=== PATIENT | female | born 1945 | race Caucasian/White ===

== ENCOUNTER → 2017-07-29 | Outpatient (CLI) | payer OTHER | LOC: BHFA 09:30 | PROVIDERS: ATTEND Internal Medicine Cardiovascular Disease | DX: R09.02 Hypoxemia (principal); Z01.810 Encounter for preprocedural cardiovascular examination; R06.02 Shortness of breath ==

== ENCOUNTER → 2017-07-30 | Outpatient (CLI) | payer OTHER | LOC: BHLMT 13:15 | PROVIDERS: ATTEND Internal Medicine Interventional Cardiology | DX: R06.02 Shortness of breath (principal); R01.1 Cardiac murmur, unspecified | CPT/HCPCS: 93306-PO ==

== ENCOUNTER → 2017-08-07 | Outpatient (CLI) | payer OTHER | LOC: BHFA 14:00 | PROVIDERS: ATTEND Internal Medicine Cardiovascular Disease | DX: R06.02 Shortness of breath (principal) | CPT/HCPCS: 78452; 93017; A9500; J2785 ==

== ENCOUNTER 2017-08-13 07:44 | Inpatient (IN) | payer OTHER ==
--- NOTE | 2017-08-13 06:42 | PDHPUP ---
History & Physical Update H&P update statement: This history and physical update is based on an assessment of the patient which was completed after admission or registration (within 24 hours), but prior to the surgery/procedure. H&P update: H&P reviewed & patient examined, no change in patient's condition since H&P completed
[2017-08-13] MEDS ORDERED: ceFAZolin 2 GM/SWFI 2 GM/20 ML SYR IVP ONE (07:57)
[2017-08-13] MEDS ORDERED: GABAPENTIN 300 MG CAP PO ONE (07:57)
[2017-08-13] MEDS ORDERED: ACETAMINOPHEN 500 MG TAB PO ONE (07:57)
[2017-08-13] MEDS ORDERED: LR 1,000 ML IV ONE (07:59)
[2017-08-13] MEDS ORDERED: LIDOCAINE 1% 2 ML INJ ID PRN (07:59)
--- NOTE | 2017-08-13 08:52 | PDANEPAE ---
ANE History of Present Illness 71 year old female w/ polio (as child), home O2 (at night and at altitude only = 2L/min), GERD, OA, vertigo and chronic low back pain presents for L3-L5 TLIF. ANE Past Medical History - Cardiovascular History Hx Hypertension: No Hx Arrhythmias: No Hx Chest Pain: No Hx Coronary Artery / Peripheral Vascular Disease: No Hx CHF / Valvular Disease: No Hx Palpitations: No Cardiovascular History Comment: on CHol Rx "BP can be borderline-now w/my age" - Pulmonary History Hx COPD: No Hx Asthma/Reactive Airway Disease: No Hx Recent Upper Respiratory Infection: No Hx Oxygen in Use at Home: No O2 in Use at Home (L/minute): 2L NC at night Hx Sleep Apnea: No Sleep Apnea Screening Result - Last Documented: Negative Pulmonary History Comment: chronic O2-uses night time O2 while at elevation- not sea level - Neurologic History Hx Cerebrovascular Accident: No Hx Seizures: No Hx Dementia: No - Endocrine History Hx Diabetes: No Hypothyroid: No Hyperthyroid: No Obesity: mild - Renal History Hx Renal Disorders: No Renal History Comment: UTI -late - Liver History Hx Hepatic Disorders: No - Neurological & Psychiatric Hx Hx Neurological and Psychiatric Disorders: Yes Neurological / Psychiatric History Comment: Polio as a child. Low back pain radiates to front groin/thigh-w/standing too long. - Cancer History Hx Cancer: No - Congenital Disorder History Hx Congenital Disorders: No - GI History Hx Gastrointestinal Disorders: Yes Gastrointestinal History Comment: GERD - Other Health History Other Health History: OA- knees. Hx of positional vertigo - Chronic Pain History Chronic Pain: Yes (back/R leg) - Surgical History Prior Surgeries: T and A child. T.L. R breast lumpectomy-benign. broken R toe -repaired ANE Review of Systems Review of Systems: - Exercise capacity Exercise capacity: <4 METS METS (RN): 3 METS ANE Patient History - Allergies Allergies/Adverse Reactions: Penicillins Allergy (Verified 08/13/17 08:22) Unknown - Home Medications Home medications: home medication list seen and reviewed Home Medications: Ascorbic Acid [Vitamin C 500 mg (*)] 500 mg PO DAILY 07/30/17 [Last Taken ] Aspirin [Aspirin 81mg (*)] 81 mg PO HS 07/30/17 [Last Taken 08/04/17] Atorvastatin Calcium [Lipitor 40 mg (*)] 40 mg PO HS 07/30/17 [Last Taken 21:00] Calcium Carbonate [Oyster Shell Calcium 500 mg (*)] 500 mg PO TID 07/30/17 [ Last Taken 08/04/17] Cholecalciferol Vit D3 [Vitamin D3 2000 units tab (OTC)] 2,000 units PO DAILY [Last Taken 08/04/17] Diazepam [Valium 10 MG (*)] 10 mg PO DAILY PRN 07/30/17 [Last Taken Unknown] Dimenhydrinate [Dramamine] 25 mg PO DAILY PRN 07/30/17 [Last Taken Unknown] Gabapentin [Neurontin 300 MG (*)] 300 mg PO TID 07/30/17 [Last Taken 08/13/17 05 :30] Glucosamine/Chondroitin [Glucosamine/Chondroitin (*)] 1 each PO BID 07/30/17 [ Last Taken 08/04/17] Herbals/Supplements -Info Only 1 ea PO DAILY 07/30/17 [Last Taken 08/04/17] Hydrocodone/Acetaminophen [[place] 5/325 (*)] 1 tab PO TID PRN 07/30/17 [Last Taken 08/13/17 05:30] Propranolol HCl [Innopran Xl] 80 mg PO DAILY PRN 07/30/17 [Last Taken Unknown] Ranitidine HCl [Zantac] 150 mg PO DAILY 07/30/17 [Last Taken 08/08/17] Ranitidine HCl [Zantac] 150 mg PO DAILY18 PRN 07/30/17 [Last Taken 08/08/17] - NPO status NPO Status: no food or drink >8 hours - Anes Hx Anes Hx: no prior problems - Smoking Hx Smoking Status: Never smoked Marijuana use: No - Alcohol Use Alcohol Use: Rarely - Family Anes Hx Family Anes Hx: neg - N/A ANE Labs/Vital Signs - Vital Signs Vital Signs: reviewed preoperatively; see RN documention for details Height: 160.02 cm Weight: 88.451 kg ANE Physical Exam - Airway Neck exam: FROM Mallampati Score: Class 2 Mouth exam: normal dental/mouth exam - Pulmonary Pulmonary: no respiratory distress - Cardiovascular Cardiovascular: regular rate and rhythym - ASA Status ASA Status: II ANE Anesthesia Plan Anesthesia Plan: general endotracheal anesthesia Total IV Anesthesia: No
[2017-08-13] MEDS ORDERED: MIDAZOLAM 2 MG/2 ML VIAL IVP ONE (10:05)
[2017-08-13] MEDS ORDERED: NON-FORMULARY NEW DRUG (Ranitidine Hcl [Zantac] 150 MG) PO PRN (10:08)
[2017-08-13] MEDS ORDERED: PROPRANOLOL HCL 80 MG PO PRN (10:08)
[2017-08-13] MEDS ORDERED: DIMENHYDRINATE 25 MG PO PRN (10:08)
[2017-08-13] MEDS ORDERED: HYDROCODONE/APAP 5/325 TAB PO PRN (10:08)
[2017-08-13] MEDS ORDERED: DIAZEPAM 10 MG TAB PO PRN (10:08)
[2017-08-13] MEDS ORDERED: LACTULOSE 20 GM/30 ML UDCUP PO PRN (10:09)
[2017-08-13] MEDS ORDERED: diphenhydrAMINE 25 MG CAP PO PRN (10:09)
[2017-08-13] MEDS ORDERED: NALOXONE HCL 0.4 MG/ML INJ IVP PRN ×2 (10:09→14:55)
[2017-08-13] MEDS ORDERED: MAGNESIUM HYDROXIDE 30 ML UDCUP PO PRN (10:09)
[2017-08-13] MEDS ORDERED: HYDROmorphONE/DILAUDID 6 MG/30 ML PCA IV PRN (10:09)
[2017-08-13] MEDS ORDERED: CHLORHEXIDINE GLUC HIBICLENS 118 ML BTL TP ONE (10:10)
[2017-08-13] MEDS ORDERED: BACITRACIN 50,000 UNITS/10 ML SYR IRR ONE ×2 (10:11→12:20)
[2017-08-13] MEDS ORDERED: THROMBIN (BOVINE) 5,000 UNIT VIAL TP ONE (10:11)
[2017-08-13] MEDS ORDERED: BUPIVACAINE 0.25% 30 ML SDV ONE (10:11)
[2017-08-13] MEDS ORDERED: PROPOFOL 200 MG/20 ML VIAL ONE (10:15)
[2017-08-13] MEDS ORDERED: fentaNYL 100 MCG/2 ML INJ ONE ×3 (10:15→16:53)
[2017-08-13] MEDS ORDERED: REMIFENTANIL HCL 1 MG VIAL ONE ×2 (10:15→12:33)
[2017-08-13] MEDS ORDERED: NS W/ 20 KCl/L 1,000 ML IV SCH (10:15)
[2017-08-13] MEDS ORDERED: PROPOFOL/EMULSION 500 MG/50 ML BOTTLE IV ONE ×2 (10:15→12:33)
[2017-08-13] MEDS: SCOPOLAMINE HYDROBROMIDE 1 MG/3 DAYS PATCH TD SCH (10:19)
[2017-08-13] MEDS ORDERED: PROPRANOLOL SR 80 MG CAP PO PRN (10:22)
[2017-08-13] MEDS ORDERED: FAMOTIDINE 20 MG TAB PO PRN (10:23)
[2017-08-13] MEDS ORDERED: PHENYLEPHRINE 10 MG/ML SDV ONE (10:25)
[2017-08-13] MEDS ORDERED: DEXAMETHASONE 4 MG/ML VIAL ONE (11:39)
[2017-08-13] MEDS ORDERED: ONDANSETRON 4 MG/2 ML VIAL ONE ×2 (11:39→16:41)
[2017-08-13] MEDS ORDERED: SUGAMMADEX SODIUM 200 MG/2 ML VIAL IVP ONE (11:39)
[2017-08-13] MEDS ORDERED: ALBUMIN 5% 250 ML BOTTLE IV ONE (14:06)
[2017-08-13] MEDS ORDERED: epHEDrine SULFATE 10 MG/ML SYR IVP PRN (14:55)
[2017-08-13] MEDS ORDERED: PHENYLEPHRINE HCL 100 MCG/ML SYR IVP PRN (14:55)
[2017-08-13] MEDS ORDERED: ONDANSETRON 4 MG/2 ML VIAL IVP PRN (14:55)
[2017-08-13] MEDS ORDERED: LR 500 ML IV PRN (14:55)
[2017-08-13] MEDS ORDERED: HYDROmorphONE/DILAUDID 1 MG/ML INJ ONE ×3 (15:39→16:59)
[2017-08-13] MEDS: fentaNYL 100 MCG/2 ML INJ IVP PRN ×4 (15:45→17:38)
--- NOTE | 2017-08-13 15:51 | SOAPPROG ---
SOAP Progress Note Assessment/Plan: Post Op Visit: S: Awake and alert. NAD. 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 -post op xrays in am -pt seen by Dr Newman as well 08/13/17 15:32 Objective: Vital Signs Temp Pulse Resp BP Pulse Ox 36.7 C 108 H 16 133/84 H 92 08/13/17 08:56 08/13/17 08:56 08/13/17 08:56 08/13/17 08:56 08/13/17 08:56 ICD10 Worksheet Patient Problems: Problems Problem Status Onset Arthrodesis status Acute Lumbago Acute Lumbar radicular pain Acute Lumbar stenosis Acute - ICD10 Problem Qualifiers (1) Lumbar stenosis Qualifiers: Neurogenic claudication status: with neurogenic claudication Qualified Code (s): M48.062 - Spinal stenosis, lumbar region with neurogenic claudication (2) Lumbar radicular pain (3) Lumbago Qualifiers: Chronicity: unspecified (4) Arthrodesis status
[2017-08-13] MEDS: HYDROmorphONE/DILAUDID 1 MG/ML INJ IVP PRN ×7 (15:52→20:27)
[2017-08-13] MEDS ORDERED: DIAZEPAM 10 MG/2 ML SYR IVP ONE (16:06)
[2017-08-13] MEDS ORDERED: DIAZEPAM 10 MG/2 ML SYR ONE (16:07)
[2017-08-13] MEDS ORDERED: HYDROCODONE/APAP 5/325 TAB ONE (16:53)
[2017-08-13] MEDS ORDERED: HYDROmorphONE/DILAUDID 1 MG/ML INJ IVP ONE (16:59)
[2017-08-13] MEDS: ONDANSETRON 4 MG/2 ML VIAL IVP PRN (18:10)
[2017-08-13] MEDS: oxyCODONE IR 5 MG TAB PO PRN ×2 (18:17→22:40)
[2017-08-13] MEDS: METHOCARBAMOL 750 MG TAB PO PRN (18:17)
[2017-08-13] MEDS: GABAPENTIN 300 MG CAP PO SCH ×2 (18:17→22:29)
[2017-08-13] MEDS: ACETAMINOPHEN 325 MG TAB PO PRN (18:18)
[2017-08-13] MEDS: ceFAZolin 2 GM/DEXTROSE 100 ML IV SCH (18:20)
[2017-08-13] MEDS: POLYETHYLENE GLYCOL 3350 17 GM PKT PO PRN (18:27)
[2017-08-13] MEDS: SENNOSIDES/DOCUSATE SODIUM TAB PO SCH (20:30)
[2017-08-13] MEDS: FAMOTIDINE 20 MG TAB PO SCH (20:30)
[2017-08-13] MEDS: ATORVASTATIN CALCIUM 40 MG TAB PO SCH (20:30)
--- NOTE | 2017-08-13 20:33 | GOP ---
[f rep st] OPERATIVE REPORT DATE OF OPERATION: 08/13/2017 SURGEON: Drew Newman MD NEUROSURGEON: Manuel Newman MD. CLIENT SUPPORT ASSOCIATE: JAGDEEP Roth. PREOPERATIVE DIAGNOSIS: Lumbar degenerative scoliosis, severe; right lumbosacral radiculopathy, righ t foraminal and lateral recess stenosis L3-4, L4-5. POSTOPERATIVE DIAGNOSIS: Lumbar degenerative scoliosis, severe; right lumbosacral radiculopathy, rig ht foraminal and lateral recess stenosis L3-4, L4-5. PROCEDURE PERFORMED: Posterior lateral and intervertebral arthrodesis L3-4, L4-5 (43553 and [id number]), placement of biomechanical intervertebral device L3-4, L4-5 (75247 x2), posterior segmental instrumen tation L3, L4, L5, microscope, spinal stereotaxis for placement of pedicle screws bilaterally at L3, L4, L5, same incision bone graft harvest. FINDINGS: ESTIMATED BLOOD LOSS: 350 cc. INDICATIONS: The patient is an older woman who has severe right lumbosacral radiculopathy unresponsi ve to conservative measures, and she had a degenerative scoliotic curve at L3-4, L4-5. She had sever e foraminal lateral recess stenosis at those levels and I suggested a 2 level fusion. She also had s ome left lateral recess stenosis at L5-S1 and a spondylolisthesis at L5-S1, but no evidence of right- sided compression at that level and therefore I excluded this from my surgical plan. There was some evidence of a degenerative scoliosis at L2-3 but no compressive lesion there. The risk of pseudoarth rosis, adjacent segment disease, continued symptoms, nerve injury, spinal fluid leak, screw and hardw are malposition and failure as well as the possibility that surgery would not give her any relief was discussed. She knew these risks and she did want to proceed. DESCRIPTION OF PROCEDURE: The patient was taken to the operating room, placed in the supine position . General anesthesia was begun. She was flipped prone onto the Blaze table. Care was taken to pa d all points of contact. We had some difficulty positioning her and she developed a small superficia l rub burn over the left anterior superior iliac spine, but this was done in positioning. We eventua lly were able to get her positioned nicely. An arterial line was started by the anesthesiologist. S he was sterilely prepped and draped in usual fashion. We made a midline incision above the L3-4, L4- 5 interspace. The subcutaneous tissue was dissected using Bovie cautery down through the fascia and a subperiosteal dissection was made down the L3-4, L4-5 lamina. The hypertrophic facets bilaterally were denuded and we shot a localizing x-ray. We attached the [employer] reference frame, placed pedicle screws bilaterally at L3, L4, and L5. They were in excellent position. We were guided by [place]. I was somewhat unhappy with the right L3 screw and an O-arm spin was made and that screw was just la teral to the pedicle. It was removed and a new screw placed down the barrel of the pedicle and an O- arm spin was made and this screw was in perfect position. All of the screws stimulated at [facility]. We were happy with the electrodiagnostics. We took 70 mm rods, cut them down to about 65 mm and placed them down between the screws, distracted on the right more so than the left and reduced th e degenerative kink on the right-hand side. They were final tightened according to company specifica tion. We harvested the complete L4 spinous process. The inferior L3 spinous process was harvested f or autologous grafting purposes. We removed all the soft tissue, the bone at L3-4, L4-5. We then dr illed bilateral laminas at L3-4, L4-5, but most of the left side was actually preserved, but we did h arvest much of the bone. Under the operating microscope, we performed right tani-laminectomies at L3 -4, L4-5 to decompress the right lateral recess, and there was some adherence of the facet joint caps ule and ligamentum flavum in the lateral recess at both levels. There was an hourglass kink in the t hecal sac on the right-hand side at L3-4 and we were able to completely decompress this area. We the n swept the L4 nerve root medially and at the L3-4 level we incised the disk, removed the disk and th e cartilaginous endplates. We roughened the subchondral bone to create arthrodesis at that level. W e went to the L4-5 level where we swept the L5 nerve root medially and removed the disk and the carti laginous endplates at L4-5 and roughened the subchondral bone to create arthrodesis. We then sized t he space and chose 7 x 28 mm devices for each space. We placed bone morphogenic protein and autograf t into the disk spaces at each level and under fluoroscopic guidance, placed expandable cages in the L3-4, L4-5 space. They were expanded under fluoroscopic guidance and we were happy with positioning of the devices. An x-ray was taken. We then carefully prepared the bone posterolaterally bilaterall y to conclude our arthrodesis and place bony autograft and BMP posterolaterally bilaterally. There w as no evidence of nerve irritation or injury during the case, all of our screws stimulated acceptable levels. They were all torqued to company specification. A subfascial drain was placed. The incisi on was closed in multiple layers using Vicryl sutures. The patient was reversed from anesthesia, ext ubated, and transferred to recovery room in stable condition. There were no complications. COMPLICATIONS: None. INSTRUMENTATION USED: 7 Cups of Tea 5.5 mm titanium Solara system with a 7 x 28 mm Elevate cage at each intervertebral device, and we used 4.0 mg of bone morphogenic protein for the surgery, 2 mg in the in terspaces and 2 mg posterolaterally. /[id number]/MODL
[2017-08-14] MEDS: ceFAZolin 2 GM/DEXTROSE 100 ML IV SCH (02:24)
[2017-08-14] MEDS: METHOCARBAMOL 750 MG TAB PO PRN ×2 (05:16→21:14)
[2017-08-14] MEDS: oxyCODONE IR 5 MG TAB PO PRN ×4 (05:16→21:14)
[2017-08-14] MEDS: HYDROmorphONE/DILAUDID 1 MG/ML INJ IVP PRN ×4 (05:17→19:09)
[2017-08-14 06:03] LABS: PLATELET COUNT 208 10^3/uL (150-400)
--- NOTE | 2017-08-14 08:32 | NEUSURGPN ---
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 NAD. Eating/drinking and voiding. No f/c/n/v/d. Pt with expected lower back pain. Objective: AFVSS/PERRLA/EOMI no droop CN 2-12 grossly intact +lt touch 5/5 BUE/BLE = CDI MANNY in place Neuro Check Frequency: per routine Urinary Catheter in Place: No Catheter Insertion Date: 08/13/17 - Physician Discussed Patient with : Trent Patient Seen by : Trent Neurosurgery Physical Exam - Vitals, I&O, Labs I and O 08/13/17 08/14/17 08/15/17 05:59 05:59 05:59 Intake Total 4047 Output Total 1935 Balance 2112 Weight 90.718 kg Intake: Oral (ml) 100 IV Intake (ml) 3947 Output: Urine (ml) 1575 Catheter 1575 Estimated Blood Loss (ml) 100 MANNY Drain Output (ml) 260 #1 Right Back Blaze 260 Romeo Vital Signs Temp Pulse Resp BP Pulse Ox 37.4 C 86 16 104/57 L 94 08/14/17 08:00 08/14/17 08:00 08/14/17 08:00 08/14/17 08:00 08/14/17 08:00 Laboratory Results 08/14/17 04:45 08/14/17 04:45 ICD10 Worksheet Patient Problems: Problems Problem Status Onset Arthrodesis status Acute Lumbago Acute Lumbar radicular pain Acute Lumbar stenosis Acute - ICD10 Problem Qualifiers (1) Lumbar stenosis Qualifiers: Neurogenic claudication status: with neurogenic claudication Qualified Code (s): M48.062 - Spinal stenosis, lumbar region with neurogenic claudication (2) Lumbar radicular pain (3) Lumbago Qualifiers: Chronicity: unspecified (4) Arthrodesis status
[2017-08-14] MEDS ORDERED: NON-FORMULARY NEW DRUG (Ranitidine Hcl [Zantac] 150 MG) PO SCH (09:00)
[2017-08-14] MEDS: SENNOSIDES/DOCUSATE SODIUM TAB PO SCH ×2 (09:28→21:13)
[2017-08-14] MEDS: GABAPENTIN 300 MG CAP PO SCH ×3 (09:28→21:13)
[2017-08-14] MEDS: FAMOTIDINE 20 MG TAB PO SCH ×2 (09:29→09:46)
[2017-08-14] MEDS: ACETAMINOPHEN 325 MG TAB PO PRN ×2 (11:36→19:10)
--- NOTE | 2017-08-14 12:28 | ASMTCMCOM ---
CM Note CM Note Notes: Chart reviewed. Met with patient and her to review dc plan of care. They live in [place] and she is s/p back surgery. She needs a brace while oob. She expresses concern over her ability to manage things like getting in and out of bed. Would benefit from [facility] services including PT and OT. Referrals placed. CM to follow. Date Signed: 08/14/2017 12:28 PM Electronically Signed By:Jaimie Willis RN
[2017-08-14] MEDS: ONDANSETRON DISINTEGRATING 4 MG TAB PO PRN (13:45)
[2017-08-14] MEDS: ATORVASTATIN CALCIUM 40 MG TAB PO SCH (21:14)
[2017-08-14] MEDS: POLYETHYLENE GLYCOL 3350 17 GM PKT PO PRN (22:35)
[2017-08-15] MEDS: oxyCODONE IR 5 MG TAB PO PRN ×4 (04:07→21:52)
[2017-08-15] MEDS: METHOCARBAMOL 750 MG TAB PO PRN ×2 (04:07→13:43)
--- NOTE | 2017-08-15 08:42 | NEUSURGPN ---
Assessment/Plan: Assessment: 71 yo female that is s/p TLIF L3/4 and L4/5 POD #2 Plan: -PT/OT in am -brace when out of bed -IV->PO meds -post op xrays demonstrate intact hardware -d/c MANNY this morning -call with any questions or concerns -Discussed with Dr. Newman -Dispo planning for later today tomorrow depending on progress with PO meds Subjective: low back pain, medication are helping some what. Denies any new leg pain, numbness, tingling or weakness. Objective: NAD A&Ox3 MAEx4 5/5 and equal in BUE and BLE. Dressing c/d/i Catheter Insertion Date: 08/13/17 - Physician Discussed Patient with : Trent Neurosurgery Physical Exam - Vitals, I&O, Labs I and O 08/14/17 08/15/17 08/16/17 05:59 05:59 05:59 Intake Total 4047 1500 350 Output Total 1935 1135 Balance 2112 365 350 Weight 90.718 kg Intake: Oral (ml) 100 1500 350 IV Intake (ml) 3947 Output: Urine (ml) 1575 1000 Catheter 1575 Toilet 1000 Estimated Blood Loss (ml) 100 MANNY Drain Output (ml) 260 135 #1 Right Back Blaze 260 135 Romeo Other: Intake Quantity Yes Yes Sufficient Number of Voids Toilet 1 Number of Emesis 1 Occurrences Vital Signs Temp Pulse Resp BP Pulse Ox 37.3 C 100 16 114/70 95 08/15/17 08:00 08/15/17 08:00 08/15/17 08:00 08/15/17 08:00 08/15/17 08:00 Laboratory Results 08/14/17 04:45 08/14/17 04:45 ICD10 Worksheet Patient Problems: Problems Problem Status Onset Arthrodesis status Acute Lumbago Acute Lumbar radicular pain Acute Lumbar stenosis Acute
[2017-08-15] MEDS: FAMOTIDINE 20 MG TAB PO SCH (08:44)
[2017-08-15] MEDS: GABAPENTIN 300 MG CAP PO SCH ×3 (08:44→21:52)
[2017-08-15] MEDS: SENNOSIDES/DOCUSATE SODIUM TAB PO SCH ×2 (08:44→21:52)
--- NOTE | 2017-08-15 11:37 | ASMTCMCOM ---
CM Note CM Note Notes: Discussed case w/PT, Elen who did not feel pt needed HHC but will reassess today. Met w/pt to discuss dc poc and she is ok with whatever is recommended. She said that her will be able to help out quite a bit. Current dc plan: home w/ unless it is felt she needs HHC for PT/OT in which case [facility] has accepted. Date Signed: 08/15/2017 11:36 AM Electronically Signed By:Layla Amos RN
[2017-08-15] MEDS: ONDANSETRON DISINTEGRATING 4 MG TAB PO PRN (14:37)
[2017-08-15] MEDS: ONDANSETRON 4 MG/2 ML VIAL IVP PRN ×2 (14:53→19:46)
[2017-08-15] MEDS: PROMETHAZINE HCL 25 MG/ML INJ IVP PRN (21:51)
[2017-08-15] MEDS: ATORVASTATIN CALCIUM 40 MG TAB PO SCH (21:53)
[2017-08-16 00:13] VITALS: PULSE 117
[2017-08-16] MEDS: oxyCODONE IR 5 MG TAB PO PRN ×2 (06:17→11:06)
[2017-08-16] MEDS: PROMETHAZINE HCL 25 MG/ML INJ IVP PRN (06:20)
[2017-08-16 07:28] VITALS: BP 117/82; RESP 16; TEMP 98.8; O2SAT 93
[2017-08-16] MEDS: SENNOSIDES/DOCUSATE SODIUM TAB PO SCH (08:46)
[2017-08-16] MEDS: BISACODYL 10 MG SUPP PR PRN ×2 (08:46→11:18)
[2017-08-16] MEDS: FAMOTIDINE 20 MG TAB PO SCH (08:47)
[2017-08-16] MEDS: GABAPENTIN 300 MG CAP PO SCH (08:47)
[2017-08-16] MEDS: SCOPOLAMINE HYDROBROMIDE 1 MG/3 DAYS PATCH TD SCH (08:48)
[2017-08-16] MEDS ORDERED: ENOXAPARIN 40 MG/0.4 ML SYR SC SCH (09:00)
[2017-08-16] MEDS ORDERED: PATCH REMOVAL 1 EA PATCH TD SCH (10:05)
[2017-08-16] MEDS ORDERED: MAGNESIUM CITRATE 300 ML BOTTLE PO ONE (10:57)
[2017-08-16] MEDS: METHOCARBAMOL 750 MG TAB PO PRN (11:06)
--- NOTE | 2017-08-16 13:25 | NEUSURGPN ---
Assessment/Plan: Assessment/Plan: Assessment: 71 yo female that is s/p TLIF L3/4 and L4/5 POD #3 Plan: -PT/OT -brace when out of bed -PO pain meds tolerating well -post op xrays demonstrate intact hardware -Some nausea but most likley from no BM- passing plenty of gas and no distention in abdomen. Hopeful for BM today -Can DC home later today if has BM, tolerating full diet, no vomiting -Scripts in chart -call with any questions or concerns -Discussed with Dr. Newman Subjective: Improved nausea this morning but still has some. No BM yet but passing gas. Has mild headache. No pain, weakness, in legs Objective: NAD A&Ox3 MAEx4 5/5 and equal in BUE and BLE. Dressing c/d/i Catheter Insertion Date: 08/13/17 - Physician Discussed Patient with : Trent Neurosurgery Physical Exam - Vitals, I&O, Labs I and O 08/15/17 08/16/17 08/17/17 05:59 05:59 05:59 Intake Total 1500 1130 Output Total 1135 650 Balance 365 480 Intake: Oral (ml) 1500 1130 Output: Urine (ml) 1000 500 Toilet 1000 500 Emesis (ml) 150 MANNY Drain Output (ml) 135 #1 Right Back Blaze 135 Romeo Other: Intake Quantity Yes Yes Sufficient Number of Voids Toilet 1 1 Number of Emesis 1 Occurrences Vital Signs Temp Pulse Resp BP Pulse Ox 37.1 C 117 H 16 117/82 H 93 08/16/17 07:27 08/16/17 07:27 08/16/17 07:27 08/16/17 07:27 08/16/17 07:27 Laboratory Results 08/14/17 04:45 08/14/17 04:45 ICD10 Worksheet Patient Problems: Problems Problem Status Onset Arthrodesis status Acute Lumbago Acute Lumbar radicular pain Acute Lumbar stenosis Acute
--- NOTE | 2017-08-16 17:41 | ASDISCHSUM ---
Discharge Information Plan Status:Home with No Needs Medically Cleared to Leave:08/15/2017 Discharge Date:08/16/2017 02:50 PM CM D/C Disposition:Home, Routine, Self-Care ADT D/C Disposition:Home, Routine, Self-Care Projected Discharge Date:08/15/2017 11:00 AM Transportation at D/C:Family Discharge Delay Reason: Follow-Up Date:08/15/2017 11:00 AM Discharge Slot:2 - 12:01 pm - 18:00 pm Final Diagnosis:s/p TLIF L3/4 and L 4/5 Placement Information Referral Type:*Home Health Care Services Referral ID:[id number] Provider Name: Address 1: Phone Number: Address 2: Fax Number: City: Selection Factors:Patient/Family Choice State: Patient Contact Information Contact Name:JEREMIAS Relationship: Address:[address] City:[facility] Phone: State/Zip Code:[place] [address] Email: Financial Information Financial Class: Primary Plan Desc:MEDICARE INPATIENT Primary Plan Number:[id number] Secondary Plan Desc:[facility] Secondary Plan Number:[id number] Assessment Information [facility] CM Progress Note CM Note CM Note Notes: Chart reviewed. Met with patient and her to review dc plan of care. They live in [place] and she is s/p back surgery. She needs a brace while oob. She expresses concern over her ability to manage things like getting in and out of bed. Would benefit from [facility] services including PT and OT. Referrals placed. CM to follow. Date Signed: 08/14/2017 12:28 PM Electronically Signed By:Jaimie Willis RN [facility] CM Progress Note CM Note CM Note Notes: Discussed case w/PT, Elen who did not feel pt needed HHC but will reassess today. Met w/pt to discuss dc poc and she is ok with whatever is recommended. She said that her will be able to help out quite a bit. Current dc plan: home w/ unless it is felt she needs HHC for PT/OT in which case [facility] has accepted. Date Signed: 08/15/2017 11:36 AM Electronically Signed By:Layla Amos RN Case Management Discharge Plan Note Case Management Discharge Discharge Order Complete? Answers: Yes Patient to Obtain Answers: via Family Medications Transportation Arranged Answers: Family/Friends EMTALA Complete Answers: No Notes: N/A Case Management Transport Answers: No Notes: N/A Form Complete Faxed Final Orders Answers: No Notes: N/A Agency/Facility Transfer Answers: No Notes: N/A Report Printed & Faxed to Receiving Agency Family Notified Answers: No Notes: Pt to notify Discharge Comments Notes: Reviewed chart, spoke w/ TINA Borrego regarding discharge plan, pt's progress. Per Sailma, pt declining home care despite PT/OT recommendations. Pt to discharge home independently w/ family support and no identified needs. Pt to follow up as directed. IM not signed, pt left prior to signing. CM avail for any further issues or concerns. Discharge Plan: Home independently w/ family support Date Signed: 08/16/2017 05:39 PM Electronically Signed By:Lea Richard RN Intervention Information
== END 2017-08-16 14:50 | disposition home or self-care (01) | DRG 458 ==
LOC: F3N 07:44
PROVIDERS: ADMIT Neurological Surgery; ATTEND Neurological Surgery
PROC: 01NB0ZZ Release Lumbar Nerve, Open Approach (ICD-10-PCS; principal; 2017-08-13 10:00)
PROC: 0ST20ZZ Resection of Lumbar Vertebral Disc, Open Approach (ICD-10-PCS; principal; 2017-08-13 10:00)
PROC: 0QB00ZZ Excision of Lumbar Vertebra, Open Approach (ICD-10-PCS; principal; 2017-08-13 10:00)
PROC: 0SG10AJ Fusion of 2 or more Lumbar Vertebral Joints with Interbody Fusion Device, Posterior Approach, Anterior Column, Open Approach (ICD-10-PCS; principal; 2017-08-13 10:00)
PROC: 3E0U0GB Introduction of Recombinant Bone Morphogenetic Protein into Joints, Open Approach (ICD-10-PCS; principal; 2017-08-13 10:00)
DX: M41.9 Scoliosis, unspecified (principal); M51.16 Intervertebral disc disorders with radiculopathy, lumbar region; M48.061 Spinal stenosis, lumbar region without neurogenic claudication
CPT/HCPCS: 97116-GP; 97161-GP; 97166-GO; 97535-GO; C1713; G8978-GP-CK; G8979-GP-CI; G8987-GO-CK; G8988-GO-CI; J0171; J0690; J1100; J1170; J1650; J2250; J2370; J2405; J2550; J2704; J3010; P9041

== ENCOUNTER → 2017-08-28 | Outpatient (CLI) | payer OTHER | LOC: FIMAGING 09:29 | PROVIDERS: ATTEND Nurse Practitioner | DX: Z09 Encounter for follow-up examination after completed treatment for conditions other than malignant neoplasm (principal); Z98.1 Arthrodesis status ==

== ENCOUNTER 2017-09-04 09:07 | Day surgery (SDC) | payer OTHER ==
[2017-09-04] MEDS ORDERED: FLUMAZENIL 0.5 MG/5 ML MDV IVP PRN (09:39)
[2017-09-04] MEDS ORDERED: MEPERIDINE 25 MG/ML SYR IVP PRN (09:39)
[2017-09-04] MEDS ORDERED: ALTEPLASE 2 MG VIAL IVP PRN (09:39)
[2017-09-04] MEDS ORDERED: MIDAZOLAM 2 MG/2 ML VIAL IVP PRN (09:39)
[2017-09-04] MEDS ORDERED: PROTAMINE SULFATE 50 MG/5 ML VIAL IVP PRN (09:39)
[2017-09-04] MEDS ORDERED: fentaNYL 100 MCG/2 ML INJ IVP PRN (09:39)
[2017-09-04] MEDS ORDERED: NALOXONE HCL 0.4 MG/ML INJ IVP PRN (09:39)
[2017-09-04] MEDS ORDERED: HEPARIN 10,000 UNIT/10 ML MDV (1,000 UNIT/ML) IVP PRN (09:39)
[2017-09-04] MEDS ORDERED: GLUCAGON HCL 1 MG VIAL IVP PRN (09:39)
[2017-09-04] MEDS ORDERED: NS 1,000 ML IV SCH (09:45)
[2017-09-04] MEDS ORDERED: ONDANSETRON 4 MG/2 ML VIAL ONE (10:41)
[2017-09-04] MEDS ORDERED: IOPAMIDOL (ISOVUE-300) 100 ML BTL ONE (11:57)
[2017-09-04 12:59] VITALS: BP 136/77; PULSE 93; RESP 12; O2SAT 99
[2017-09-04] MEDS ORDERED: ONDANSETRON 4 MG/2 ML VIAL IVP PRN (13:24)
[2017-09-04] MEDS ORDERED: ACETAMINOPHEN 325 MG TAB PO PRN (13:24)
--- NOTE | 2017-09-04 13:32 | PDRADPN ---
Radiology Procedure Note Date of Procedure: 09/04/17 Radiologist: Gunner Bingham Anesthesia: IV Sedation Pre-op Diagnosis: Fluid collection Post-op Diagnosis: Same Indication: Severe LBP Finding(s): Complex fluid under US. Rim-enhancing on CT. Unclear if actually infected by imaging. Needle inserted under CT guidance. Several drops of serosanginous fluid removed in 2 samples. No drainable collection, however. Findings dicussed with Dr. Newman by telephone at the end of the case. Inf/Abcess present in the surg proc area at time of surgery?: No EBL: Minimal Complications: No immediate.
[2017-09-04] MEDS ORDERED: ACETAMINOPHEN 325 MG TAB ONE (13:36)
--- NOTE | 2017-09-04 13:53 | PDPROPOC ---
Sedation Plan of Care Sedation Plan of Care: vital signs stable, mental status noted, patient educated of risks, benefits, alternatives, patient can tolerate sedation ASA Classification: ASA 3 Planned drugs: fentanyl, midazolam Mallampati Score: Class 3 Mallampati Reference Image: Patient passed 3-3-2 rule?: Yes
[2017-09-04 14:30] VITALS: TEMP 208.6
== END 2017-09-04 14:15 | disposition home or self-care (01) ==
LOC: FIMAGING 09:07
PROVIDERS: ATTEND Physician Assistant
PROC: BH48ZZZ Ultrasonography of Lower Extremity (ICD-10-PCS; principal; 2017-09-04 13:09)
PROC: 0J973ZX Drainage of Back Subcutaneous Tissue and Fascia, Percutaneous Approach, Diagnostic (ICD-10-PCS; principal; 2017-09-04 13:09)
DX: T88.8XXA Other specified complications of surgical and medical care, not elsewhere classified, initial encounter (principal); M54.5 Low back pain; Y65.8 Other specified misadventures during surgical and medical care; Z98.1 Arthrodesis status
CPT/HCPCS: J2250; J2310; J2405; J3010; Q9967

== ENCOUNTER 2017-09-08 10:51 | Inpatient (IN) | payer OTHER ==
[2017-09-08] MEDS ORDERED: LR 1,000 ML IV ONE (11:09)
[2017-09-08] MEDS ORDERED: LIDOCAINE 1% 2 ML INJ ID PRN (11:09)
--- NOTE | 2017-09-08 11:41 | PDANEPAE ---
ANE History of Present Illness scoliosis ANE Past Medical History - Cardiovascular History Hx Hypertension: No Hx Arrhythmias: No Hx Chest Pain: No Hx Coronary Artery / Peripheral Vascular Disease: No Hx CHF / Valvular Disease: No Hx Palpitations: No Cardiovascular History Comment: on CHol Rx "BP can be borderline-now w/my age" - Pulmonary History Hx COPD: No Hx Asthma/Reactive Airway Disease: No Hx Recent Upper Respiratory Infection: No Hx Oxygen in Use at Home: Yes O2 in Use at Home (L/minute): 2 l Hx Sleep Apnea: No Sleep Apnea Screening Result - Last Documented: Negative Pulmonary History Comment: chronic O2-uses night time O2 while at elevation- not sea level - Neurologic History Hx Cerebrovascular Accident: No Hx Seizures: No Hx Dementia: No - Endocrine History Hx Diabetes: No Hypothyroid: No Hyperthyroid: No Obesity: yes, moderate - Renal History Hx Renal Disorders: No Renal History Comment: UTI -late - Liver History Hx Hepatic Disorders: No - Neurological & Psychiatric Hx Hx Neurological and Psychiatric Disorders: Yes Neurological / Psychiatric History Comment: Polio as a child. Low back pain radiates to front groin/thigh-w/standing too long. - Cancer History Hx Cancer: No - Congenital Disorder History Hx Congenital Disorders: No - GI History GERD: mild Hx Gastrointestinal Disorders: Yes Gastrointestinal History Comment: GERD - Other Health History Other Health History: Seroma to spinal incision 07/2016. OA- knees. Hx of positional vertigo - Chronic Pain History Chronic Pain: Yes (back/R leg) - Surgical History Prior Surgeries: Spinal fusion 07/2016. T and A child. T.L. R breast lumpectomy-benign. broken R toe-repaired ANE Review of Systems Review of Systems: - Exercise capacity METS (RN): 3 METS ANE Patient History - Allergies Allergies/Adverse Reactions: Penicillins Allergy (Verified 08/13/17 10:17) Unknown - Home Medications Home Medications: Atorvastatin Calcium [Lipitor 40 mg (*)] 40 mg PO HS 07/30/17 [Last Taken 21:00] Calcium Carbonate [Oyster Shell Calcium 500 mg (*)] 500 mg PO TID 07/30/17 [ Last Taken 09/07/17 21:00] Cholecalciferol Vit D3 [Vitamin D3 2000 units tab (OTC)] 2,000 units PO DAILY [Last Taken 09/07/17 08:00] Gabapentin [Neurontin 300 MG (*)] 600 mg PO QID 07/30/17 [Last Taken 09/07/17 04 :30] Ranitidine HCl [Zantac] 150 mg PO DAILY 07/30/17 [Last Taken 09/08/17 08:30] oxyCODONE IR [Oxycodone Ir (*)] 10 mg PO Q4HRS 09/05/17 [Last Taken 09/08/17 08: 30] - NPO status NPO Since - Liquids (Date): 09/08/17 NPO Since - Liquids (Time): 06:30 NPO Since - Solids (Date): 09/07/17 NPO Since - Solids (Time): 20:30 - Smoking Hx Smoking Status: Never smoked - Family Anes Hx Family Hx Anesthesia Complications: none ANE Labs/Vital Signs - Vital Signs Blood Pressure: 144/76 Heart Rate: 100 Respiratory Rate: 20 O2 Sat (%): 91 Height: 160.02 cm Weight: 90.718 kg ANE Physical Exam - Airway Neck exam: FROM Mallampati Score: Class 3 Mouth exam: normal dental/mouth exam - Pulmonary Pulmonary: no respiratory distress, no rales or rhonchi, clear to auscultation - Cardiovascular Cardiovascular: no murmur, rub, or gallop, tachycardia - ASA Status ASA Status: III ANE Anesthesia Plan Anesthesia Plan: general endotracheal anesthesia Total IV Anesthesia: No
--- NOTE | 2017-09-08 12:05 | PDHPUP ---
History & Physical Update H&P update statement: This history and physical update is based on an assessment of the patient which was completed after admission or registration (within 24 hours), but prior to the surgery/procedure.
[2017-09-08] MEDS ORDERED: CHLORHEXIDINE GLUC HIBICLENS 118 ML BTL TP ONE (12:20)
[2017-09-08] MEDS ORDERED: THROMBIN (BOVINE) 20,000 UNIT VIAL TP ONE (12:20)
[2017-09-08] MEDS ORDERED: BUPIVACAINE 0.25% 30 ML SDV ONE (12:21)
[2017-09-08] MEDS ORDERED: MIDAZOLAM 2 MG/2 ML VIAL IVP ONE (12:21)
[2017-09-08] MEDS ORDERED: BACITRACIN 50,000 UNITS/10 ML SYR IRR ONE (12:21)
[2017-09-08] MEDS ORDERED: VANCOMYCIN HCL/NORMAL SALINE 250 ML IV ONE (12:35)
[2017-09-08] MEDS ORDERED: ACETAMINOPHEN 500 MG TAB PO ONE (12:35)
[2017-09-08] MEDS ORDERED: oxyCODONE IR 5 MG TAB PO ONE (12:35)
[2017-09-08] MEDS ORDERED: fentaNYL 100 MCG/2 ML INJ ONE ×4 (12:39→21:28)
[2017-09-08] MEDS ORDERED: REMIFENTANIL HCL 1 MG VIAL ONE (12:40)
[2017-09-08] MEDS ORDERED: DEXAMETHASONE 4 MG/ML VIAL ONE ×2 (12:41)
[2017-09-08] MEDS ORDERED: PROPOFOL/EMULSION 500 MG/50 ML BOTTLE IV ONE ×3 (12:41→16:44)
[2017-09-08] MEDS ORDERED: ROCURONIUM 50 MG/5 ML VIAL ONE (12:41)
[2017-09-08] MEDS ORDERED: ONDANSETRON 4 MG/2 ML VIAL ONE (12:41)
[2017-09-08] MEDS ORDERED: PROPOFOL 200 MG/20 ML VIAL ONE (12:41)
[2017-09-08] MEDS ORDERED: LIDOCAINE 2% 5 ML SDV ONE (12:42)
[2017-09-08] MEDS: SCOPOLAMINE HYDROBROMIDE 1 MG/3 DAYS PATCH TD SCH (12:54)
[2017-09-08] MEDS ORDERED: TRANEXAMIC ACID IV ONE (13:00)
[2017-09-08] MEDS ORDERED: NS IV ONE (13:00)
[2017-09-08] MEDS ORDERED: NALOXONE HCL 0.4 MG/ML INJ IVP PRN ×2 (13:01→13:12)
[2017-09-08] MEDS ORDERED: PHENYLEPHRINE HCL 100 MCG/ML SYR IVP PRN (13:01)
[2017-09-08] MEDS ORDERED: LR 500 ML IV PRN (13:01)
[2017-09-08] MEDS ORDERED: ACETAMINOPHEN 500 MG TAB PO PRN (13:01)
[2017-09-08] MEDS ORDERED: MEPERIDINE 25 MG/ML SYR IVP PRN (13:01)
[2017-09-08] MEDS ORDERED: DIAZEPAM 10 MG/2 ML SYR IVP PRN (13:01)
[2017-09-08] MEDS ORDERED: ONDANSETRON 4 MG/2 ML VIAL IVP PRN ×2 (13:01→13:12)
[2017-09-08] MEDS ORDERED: OXYCODONE/APAP 5/325 TAB PO PRN (13:01)
[2017-09-08] MEDS ORDERED: HYDROCODONE/APAP 5/325 TAB PO PRN (13:01)
[2017-09-08] MEDS ORDERED: PHENYLEPHRINE HCL 100 MCG/ML SYR ONE (13:11)
[2017-09-08] MEDS ORDERED: BISACODYL 10 MG SUPP PR PRN (13:12)
[2017-09-08] MEDS ORDERED: diphenhydrAMINE 25 MG CAP PO PRN (13:12)
[2017-09-08] MEDS ORDERED: POLYETHYLENE GLYCOL 3350 17 GM PKT PO PRN (13:12)
[2017-09-08] MEDS ORDERED: LACTULOSE 20 GM/30 ML UDCUP PO PRN (13:12)
[2017-09-08] MEDS ORDERED: MAGNESIUM HYDROXIDE 30 ML UDCUP PO PRN (13:12)
[2017-09-08] MEDS ORDERED: METHOCARBAMOL 750 MG TAB PO PRN (13:15)
[2017-09-08] MEDS ORDERED: VASOPRESSIN 20 UNIT/ML VIAL ONE (14:19)
[2017-09-08] MEDS ORDERED: RANITIDINE 50 MG/2 ML VIAL ONE (14:24)
[2017-09-08] MEDS ORDERED: KETAMINE 200 MG/20 ML VIAL ONE (14:41)
[2017-09-08] MEDS ORDERED: PHENYLEPHRINE 10 MG/ML SDV ONE (16:39)
--- NOTE | 2017-09-08 19:56 | POSTOPPROG ---
Post Op Note Date of Operation: 09/08/17 Surgeon: Sahil Newman Polysomnographic Technician: Alejandra Green NP Anesthesiologist: David Anesthesia: GET(General Endotracheal) Pre-op Diagnosis: HNP, Stenosis, Spondy Procedure: L2-3, L5-S1 TLIF with PSF L1-S1 Inf/Abcess present in the surg proc area at time of surgery?: No Depth: Deep Incisional (Fascial) EBL: 500-1000 Total fluids administered: see anesthesia Complications: none Drains: Blaze Romeo Date of Surgery: 09/08/17 Post Op Day: 0 Assessment/Plan: 72 yr old s/p L2-3, L5-S1 TLIF with PSF L1-S1 Plan: -Pain management, exterior work helper ordered if needed -PT/OT -Wear brace when out of bed, patient already has brace -Will check H/H in PACU -Please call neurosurgery with any questions/concerns Subjective: Patient waking up in PACU Objective: Waking up in PACU PERRLA No droop Patient retracting BLE to painful stim Moves BUE spontaneously Dressing CDI MANNY patent Appropriate Neuro Check Frequency Ordered: Yes
[2017-09-08] MEDS ORDERED: DIAZEPAM 10 MG/2 ML SYR ONE (20:10)
[2017-09-08] MEDS: fentaNYL 100 MCG/2 ML INJ IVP PRN ×2 (21:31→21:45)
--- NOTE | 2017-09-08 22:01 | GOP ---
[f rep st] OPERATIVE REPORT DATE OF OPERATION: 09/08/2017 SURGEON: Drew Newman MD NEUROSURGEON: Manuel Newman MD. PERSONAL SERVICE REPRESENTATIVE: Alejandra Green, Nurse Practitioner. PREOPERATIVE DIAGNOSIS: Degenerative scoliotic curve, worsening scoliotic curve right L2-3, spondylo listhesis L5-S1, left L5-S1 disk herniation, previous fusion L3-4, L4-5. POSTOPERATIVE DIAGNOSIS: PROCEDURE PERFORMED: Removal of posterior segmental instrumentation L3, L4, L5, posterior lateral an d intervertebral arthrodesis L2-3, L5-S1 (03635, 49982), placement of expandable biomechanical interv ertebral device L2-3, L5-S1 (73072 x2), posterior segmental instrumentation, L1, L2, L3, L4, L5, S1-6 levels (72419), posterior-lateral arthrodesis only L1-L2 (18071), same incision bone graft harvest, microscope, spinal stereotaxis. FINDINGS: ESTIMATED BLOOD LOSS: 500 cc. INDICATIONS: The patient is a 72-year-old who just recently underwent an L3-4, L4-5 TLIF for severe right leg pain and did relatively well for just a short period of days, but while at home, began deve loping increasingly severe radiating pain in the right flank with some radiation to the leg but not b elow the knee. It went over the right hip and down the anterior lateral thigh, but not down the back of the right leg. The pain was very severe in nature, as bad as her preop pain. In fact, it was wo rse in some ways as it is extremely sensitive to touch and was a new pain for her. It was not quite like her preop pain. We performed an image last week, an MRI of the lumbar spine, and it demonstrate d a seroma at the operative side. There was an attempt by Radiology to aspirate the fluid and they o nly got 1 drop out and it was cultured. It was negative. There is no evidence of any infection. He r lab values did not indicate an infection. Her incision was perfectly clean, dry, and intact. Ther e was absolutely no erythema, the skin itself was nicely epithelialized. She went home and awaited t his out over the weekend, but really did not get any better, in fact possibly was getting worse. Any movement at all led to terrible pain down the right leg, but she was also when she came in this morn ing complaining of some left-sided buttock and iliac crest pain that was new for her. When we review ed the MRI, the MRI done last week compared to preop MRI, there were 2 new findings. There is increa singly severe right lateral recess stenosis at L2-3 and a progressed scoliotic kink on the right at L 2-3 that was not seen on the prior MRI. She did have a mild curve there, but it had worsened. In ad dition, she now had developed what appeared to be a left foraminal disk fragment, best seen on sagitt al images at L5-S1, possibly accounting for the new left leg pain. I discussed this with her and her prior to surgery. We had booked her initially for just a simple washout and exploration, bu t after hearing of the progression of her symptoms over the weekend, as well as the left leg pain, I felt that this is not related to any fluid at the operative site. Our original intention obviously w as to take her to the OR to deal with the sequela of our original surgery. However, after reviewing the films and showing them to my partner and discussing at length with them, I felt that this was joe lly the worsening of her degenerative scoliotic curve at adjacent segments. I therefore consented he r for a TLIF at L2-3, where I thought the dominant right-sided symptoms were coming from, and then a left-sided TLIF at L5-S1 to deal with the foraminal disk protrusion. Again, she had a spondylolisthe sis already present at L5-S1 that was degenerative in nature. This was seen on her preop study, but naturally the new finding in the left foramen and the left-sided pain prompted us to want to do surge ry at this level. In addition, looking at her AP images, there was also some persistent or a degener ative scoliotic kink even at L1-2. This was reviewed with my partner and the patient and we thought that we may in fact include screws at L1, but we would make this decision intraoperatively. She unde rstood the extent of the procedure. She also knew there was a significant chance of complications, p articularly at the L5-S1 level that could prompt additional surgery. We in fact had consented her fo r pelvic fixation during this surgery if it became necessary and sacral pelvic fixation, but we would make that decision intraoperatively. She did want to proceed. She was miserable. She could not go on with life the way it currently was and she freely consented. DESCRIPTION OF PROCEDURE: The patient was taken to the operating room, placed in the supine position . General anesthesia was begun. She was flipped prone onto the Blaze table. Care was taken to pa d all points of contact. Her back was sterilely prepped and draped in the usual fashion. Localizing x-rays were taken. We made a midline incision with a scalpel blade from the spinous process of T12 all the way to the spinous process of S2. It was a rather long exposure. The subcutaneous tissue wa s dissected using the plasma blade down to the fascia and a subperiosteal dissection was made down th e inferior lamina of T12, lamina of L1-L2 was exposed, the prior hardware at L3-4 and 5 where it was exposed. We also exposed the sacrum as well as the S2 segments and we prepared for placement of sacr al pelvic fixations at the S2 level. After exposing her and looking at her spine, 1 could appreciate there was really a very acute and hyper acute right-sided kink of the spine at L2-3, that really had not been appreciated before. It was extremely impressive. There was also some rotational component , as her spinous process was rotated to the right side of the kink. We removed the cap screws from t he prior rods at L3-4 and 5, removed these, and we tested each of the screws. They were all firmly s eated in bone. There was no evidence of hardware loosening. Interestingly, the right transverse process of L3 did appear to wiggle a little bit and there may be a TP fracture on the right at L3. This combined with a kink led me to believe that there may be a mi ld subacute superior endplate compression deformity of L3, but this is not clearly seen on the MRI or the x-rays. We attached the [employer] reference frame to the L5 spinous process, performed an O-arm s pin and using frameless steel stereotaxis, we placed pedicle screws bilaterally at S1. S1 pedicles w ere extremely hard and I was very happy with these screws. They were both very firmly and definitive ly bicortical protruding through the ventral portion of the sacrum. They stimulated great levels and the bone was extremely hard. We were able to get a 7.5 mm screw into the sacrum and it was a very m uch medialized. I discussed this with my partner, Dr. Alvares. We looked at the favor ability of arie cing sacral pelvic screws at S2 and her sacrum was somewhat shallow and it was not going to be a terr renown urgent care trajectory through the SI joint itself, although we could put a screw laterally into the sacral ala itself, but I felt that this was not necessary and we might salvage this later if she developed a pseudarthrosis. I was again very happy with the S1 screws. We had removed the S2 spinous process h owever, we did preserve much of the L5 spinous process as a reference frame. We then changed course and went up to L1-2, performed 2-O arm spins looking at these areas, both for stereotactic placement of the L1 and L2 screws. We used 6.5 mm screws bilaterally at L1. On the right at L2, it was a some what smaller pedicle. We used a 5.5 mm screw there, and on the left a 6.5 mm screw. The screws were in excellent position. We then before placing the pippa, decorticated the L1-2 and L2-3 facet joints on each side for a post lateral arthrodesis at that level and we cut a pippa to about 130 mm on each si de and placed it down. A simple lordotic bend was placed in the pippa. We dropped the pippa on the righ t-hand side and distracted on the right at L1-2 and L2-3 with most distraction at L2-3 and this total ly removed the kink. It was rather impressive how this straightened out the spine. We were very hap py with this. On the left-hand side, we placed the pippa and distracted on the left at L5-S1, decreasi ng the leftward tilt of L5 on the sacrum slightly, but we did not put a lot of distraction on the lef t-hand side. We did not want to increase the stress from the S1 screws. We placed cap screws down o matt the rods, torqued them to company specification and then removed all the soft tissue of the bone throughout our exposure. We then harvested the complete L2 spinous process for autologous grafting p urposes. We harvested parts of the remainder of L3 spinous process for autologous grafting purposes, and we harvested part of the L5 spinous process for autologous grafting purposes. We drilled a left L5-S1 tani laminectomy and under the microscope decompressed the left lateral recess and the exiting L5 nerve root and indeed there was a foraminal disk fragment present. It did not appear to be an ac [place] fragment that popped out, but one could appreciate a rather dramatic mass underneath in a subannu lar location underneath the L5 nerve root at L5-S1. We did not completely remove this currently. I was standing on the patient's left-hand side. I then went to the right-hand side where we performed a right L2-3 hemilaminectomy and removed the remaining arch of L3 on the right-hand side, decompresse d the traversing L3 root at the L2-3 level and followed this down below the L3 pedicle into its neura l foramen in the area of our previous surgery. There was no evidence of compression indeed at the L3 -4 or the L4-5 site based upon our inspection of the epidural space. We then swept the L3 nerve root medially and at the L2-3 level from the right side we removed the disk and the cartilaginous endplat es. We roughened the subchondral bone to create arthrodesis at L5-S1. We did likewise from the left -hand side at that level, removing the disk and the cartilaginous endplates and roughened the subchon dral bone to create arthrodesis there. We then removed the operating microscope and placed trials in to each of these and I chose 7 x 23 mm expandable devices for each. But before placing the devices, I went back to the left L5-S1 foramen where we radically impinged the left exiting L5 nerve root. It was traveling up and rather taut over the top of a subannular disk fragment and we continued followi ng the nerve root way out into the foramen beyond the pedicle until it began its ventral course into the pelvis itself in front of the sacrum and we were able to fracture this annular fragment down in t he disk space where it was removed and this released the L5 root nicely. We then placed bony autogra ft and BMP into each of the disk spaces followed by the expandable device manufactured by [employer]. It was inserted and expanded and AP and lateral x-rays were taken. I was very happy with the positi on of the device. We then decorticated all remaining bone posterolaterally bilaterally and then took bone autograft and BMP and placed posterolaterally bilaterally from L1-S1, placed a subfascial drain , and then closed the incision in multiple layers using Vicryl sutures. Steri-Strips were applied to the skin. The patient was reversed from anesthesia, extubated, and transferred to recovery room in stable condition. There were no complications. She tolerated the procedure well. We did of note take 1 microbiology specimen from the subfascial fluid and the Gram stain came back to us during the surgery and it showed occasional white blood cell, but the Gram stain was negative for any organisms. There was absolutely no subfascial sign of any infection at the prior surgical site. It simply just looked like normal healing tissue that was present. Those cultures were sent to [facility] and will be followed for several days. COMPLICATIONS: None. INSTRUMENTATION USED: Medtronic Solara titanium 5.5 mm system. We used 7.5 mm screws at S1. /[id number]/MODL
[2017-09-08] MEDS: ACETAMINOPHEN 500 MG TAB PO SCH ×2 (22:51→22:53)
[2017-09-08] MEDS: GABAPENTIN 300 MG CAP PO SCH ×2 (22:54→22:56)
[2017-09-08] MEDS: SENNOSIDES/DOCUSATE SODIUM TAB PO SCH (22:55)
[2017-09-08] MEDS: FAMOTIDINE 20 MG TAB PO SCH (22:56)
[2017-09-09] MEDS: GABAPENTIN 300 MG CAP PO SCH ×4 (00:38→21:40)
[2017-09-09] MEDS ORDERED: VANCOMYCIN HCL/NORMAL SALINE 250 ML IV ONE (01:00)
[2017-09-09] MEDS: morphINE PCA 30 MG/30 ML PCA IV PRN ×2 (02:00→08:42)
[2017-09-09 05:54] LABS: PLATELET COUNT 236 10^3/uL (150-400)
[2017-09-09] MEDS: ACETAMINOPHEN 500 MG TAB PO SCH ×3 (06:32→21:39)
--- NOTE | 2017-09-09 08:20 | NEUSURGPN ---
Date of Surgery: 09/08/17 Post Op Day: 1 Assessment/Plan: 72 yr old s/p L2-3, L5-S1 TLIF with PSF L1-S1 POD#1 Plan: -Pain management, patient using INSIDE SOLAR SALES CONSULTANT, will add long acting medication and ensure muscle relaxant is scheduled -Patient with same persistent right hip pain as pre op, postive NICOLE with internal rotation-will get right hip xrays this am for eval, will also get lumbar xrays, ok for patient to lay down for xrays -PT/OT-hold for this morning until right hip xrays complete -Wear brace when out of bed, patient already has brace -H/H 26.8/8.7 will continue to monitor -MANNY remains productive -Please call neurosurgery with any questions/concerns -Patient was seen by Dr Newman as well Subjective: 05/06 right hip pain Objective: AxO x3 PERRLA No droop 5/5 BUE, BLE Positive NICOLE with internal rotation on the right Sensation intact to light touch BLE Dressing CDI MANNY productive/patent Neuro Check Frequency: per routine Urinary Catheter in Place: Yes Urinary Catheter Indication: Other (Use Comment) (non ambulatory) Catheter Insertion Date: 09/08/17 - Physician Discussed Patient with : Trent Patient Seen by : Trent Neurosurgery Physical Exam - Vitals, I&O, Labs I and O 09/08/17 09/09/17 09/10/17 05:59 05:59 05:59 Intake Total 4510 250 Output Total 2019 1249 Balance 2490 -1000 Weight 90.718 kg Intake: Oral (ml) 10 IV Intake (ml) 4500 IV Infused (ml) 250 Vancomycin HCl/Normal 250 Saline 250 ml @ 250 mls/ hr IV ONCE@0100 ONE Rx#: [id number] Output: Urine (ml) 1300 1250 Catheter 1300 1250 Estimated Blood Loss (ml) 500 MANNY Drain Output (ml) 220 #1 Back 220 Other: Number of Voids Catheter 1 Microbiology 09/08/17 14:00 Gram Stain - Final Other - Tissue Vital Signs Temp Pulse Resp BP Pulse Ox 36.4 C 89 16 115/67 95 09/09/17 08:00 09/09/17 08:00 09/09/17 08:00 09/09/17 08:00 09/09/17 08:00 Laboratory Results 09/09/17 04:20 09/09/17 04:20 ICD10 Worksheet Patient Problems: Problems Problem Status Onset Arthrodesis status Acute Lumbago Acute Lumbar radicular pain Acute Lumbar stenosis Acute
[2017-09-09] MEDS: ONDANSETRON DISINTEGRATING 4 MG TAB PO PRN (08:34)
--- NOTE | 2017-09-09 09:24 | POSTANESTH ---
Post Anesthetic Evaluation Cardiovascular Status: Normal, Stable Respiratory Status: Normal, Stable Level of Consciousness/Mental Status: Can Participate in Eval Pain Control: Adequate, Prn Tx Ordered Nausea/Vomiting Control: Adequate, Prn Tx Ordered Complications Possibly Related to Anesthesia: None Noted
[2017-09-09] MEDS: FAMOTIDINE 20 MG TAB PO SCH ×2 (09:31→21:40)
[2017-09-09] MEDS: SENNOSIDES/DOCUSATE SODIUM TAB PO SCH ×2 (09:31→21:42)
[2017-09-09] MEDS: morphINE SR 15 MG TAB PO SCH ×2 (09:32→21:42)
[2017-09-09] MEDS: MAGNESIUM HYDROXIDE 30 ML UDCUP PO SCH (09:41)
[2017-09-09] MEDS: METHOCARBAMOL 750 MG TAB PO SCH ×3 (13:48→21:41)
[2017-09-09] MEDS ORDERED: DIAZEPAM 10 MG/2 ML SYR IVP ONE (14:45)
--- NOTE | 2017-09-09 14:47 | ASMTCMCOM ---
CM Note CM Note Notes: Pt had spinal surgery and may have hip fracture, xray pending. Therapy recs pending. CM to follow. Date Signed: 09/09/2017 02:46 PM Electronically Signed By:TEENA Andres
[2017-09-10] MEDS: ACETAMINOPHEN 500 MG TAB PO SCH ×3 (05:22→21:16)
[2017-09-10] MEDS: METHOCARBAMOL 750 MG TAB PO SCH ×4 (05:22→21:17)
[2017-09-10] MEDS: GABAPENTIN 300 MG CAP PO SCH ×3 (05:22→21:16)
[2017-09-10] MEDS: morphINE SR 15 MG TAB PO SCH ×2 (08:16→21:17)
[2017-09-10] MEDS: FAMOTIDINE 20 MG TAB PO SCH ×2 (08:16→21:17)
[2017-09-10] MEDS: SENNOSIDES/DOCUSATE SODIUM TAB PO SCH ×2 (08:16→21:17)
[2017-09-10] MEDS: MAGNESIUM HYDROXIDE 30 ML UDCUP PO SCH (08:18)
--- NOTE | 2017-09-10 08:24 | NEUSURGPN ---
Date of Surgery: 09/08/17 Post Op Day: 2 Assessment/Plan: 72 yr old s/p L2-3, L5-S1 TLIF with PSF L1-S1 POD#2 Plan: -Pain management, patient using COMPENSATION CONSULTING MANAGER, PO medications helping more than yesterday -Patient with same persistent right hip pain as pre op, xray right hip yesterday negative, MRI right hip showed labrum tear. Spoke with Dr Joiner this am who will see today to eval. We body builder apprentice his input on any hip pathology she has. -Lumbar post op xrays show stable hardware placement -PT/OT -Wear brace when out of bed, patient already has brace -H/H 26.6/8.6 stable from yesterday, patient is asymptomatic- will continue to monitor -MANNY remains productive -Please call neurosurgery with any questions/concerns -Patient was seen by Dr Newman as well Subjective: Pain slightly improved today Objective: AxO x3 PERRLA No droop 5/5 BUE, BLE Negative NICOLE on the right (was positive yesterday with internal rotation) Sensation intact to light touch BLE Dressing CDI MANNY productive/patent Neuro Check Frequency: per routine Urinary Catheter in Place: No Catheter Insertion Date: 09/08/17 - Physician Discussed Patient with : Trent Patient Seen by : Trent Neurosurgery Physical Exam - Vitals, I&O, Labs I and O 09/09/17 09/10/17 09/11/17 05:59 05:59 05:59 Intake Total 4510 1719 Output Total 2019 3529 Balance 2490 -1811 Weight 90.718 kg 90.718 kg Intake: Oral (ml) 10 1000 IV Intake (ml) 4500 447 IV Infused (ml) 272 Vancomycin HCl/Normal 250 Saline 250 ml @ 250 mls/ hr IV ONCE@0100 ONE Rx#: [id number] morphINE COMPENSATION CONSULTING MANAGER See Protocol 22 IV PRN PRN Rx#: [id number] Output: Urine (ml) 1300 3250 Catheter 1300 3250 Estimated Blood Loss (ml) 500 MANNY Drain Output (ml) 220 280 #1 Back 220 280 Other: Number of Voids Catheter 1 Microbiology 09/08/17 14:00 Gram Stain - Final Other - Tissue Vital Signs Temp Pulse Resp BP Pulse Ox 37.3 C 96 16 98/60 L 93 09/10/17 07:58 09/10/17 07:58 09/10/17 07:58 09/10/17 07:58 09/10/17 07:58 Laboratory Results 09/10/17 04:16 09/09/17 04:20 ICD10 Worksheet Patient Problems: Problems Problem Status Onset Arthrodesis status Acute Lumbago Acute Lumbar radicular pain Acute Lumbar stenosis Acute
[2017-09-10] MEDS: morphINE PCA 30 MG/30 ML PCA IV PRN (09:00)
--- NOTE | 2017-09-10 14:54 | ASMTCMCOM ---
CM Note CM Note Notes: PT rec inpatient rehab, order input today by DERIC Green. OT rec pending. Spoke w pt and husb about inpatient rehab, pt states she would be agreeable if recommended but is also hopeful she can progress to going home at d/c. CM to follow. Date Signed: 09/10/2017 01:57 PM Electronically Signed By:TEENA Andres
[2017-09-10] MEDS: ONDANSETRON DISINTEGRATING 4 MG TAB PO PRN (15:19)
[2017-09-10] MEDS: ATORVASTATIN CALCIUM 40 MG TAB PO SCH (21:16)
[2017-09-11] MEDS: morphINE PCA 30 MG/30 ML PCA IV PRN (06:06)
[2017-09-11] MEDS: ACETAMINOPHEN 500 MG TAB PO SCH ×3 (06:06→21:32)
[2017-09-11] MEDS: METHOCARBAMOL 750 MG TAB PO SCH ×4 (06:07→21:33)
[2017-09-11] MEDS: GABAPENTIN 300 MG CAP PO SCH ×3 (06:07→21:33)
[2017-09-11] MEDS: MAGNESIUM HYDROXIDE 30 ML UDCUP PO SCH (08:18)
[2017-09-11] MEDS: ENOXAPARIN 40 MG/0.4 ML SYR SC SCH (08:19)
[2017-09-11] MEDS: SENNOSIDES/DOCUSATE SODIUM TAB PO SCH ×2 (08:20→21:34)
[2017-09-11] MEDS ORDERED: NON-FORMULARY NEW DRUG (Ranitidine Hcl [Zantac] 150 MG) PO SCH (09:00)
--- NOTE | 2017-09-11 09:13 | GCON ---
[f rep st] CONSULTATION ORTHOPEDIC CONSULTATION DATE OF CONSULTATION: 09/10/2017 REASON FOR CONSULTATION: Right hip pain. HISTORY OF PRESENT ILLNESS: Pratima is a 72-year-old female, who just underwent a lumbar surgery, who asked me to see her for ongoing right hip and buttock pain. She has undergone surgery by Dr. Newman. Also has some epidural steroid injections by Dr. Lanier. She is not sure if any of these procedures have really changed the hip and buttock pain. An MRI was obtained here in the hospital, which showed some mild arthritis of the hip, some degenerative superior labral tearing, partial tearing of the gluteus medius and minimus tendons, as well as some trochanteric bursitis. PAST MEDICAL HISTORY: Borderline hypertension, high cholesterol. SOCIAL HISTORY: She is . Lives here locally. Does not smoke. Reports no alcohol use. REVIEW OF SYSTEMS: Review of systems, other than low back and right hip pain, is unremarkable. No shortness of breath or chest pain. Otherwise, review of systems unremarkable. PHYSICAL EXAM: GENERAL: She is pleasant. is at the bedside. Alert and oriented x3. VITAL SIGNS: Blood pressure is 96/53, heart rate 85, respiratory rate of 16, oxygen saturation is 96 on 3 L of oxygen. Temp is 37. HEENT: Normocephalic, atraumatic. Extraocular muscles are intact. NECK: Supple. There is no lymphadenopathy. No JVD. CHEST: Clear to auscultation. CARDIOVASCULAR: Regular rate and rhythm. ABDOMEN: Soft, nontender, nondistended. EXTREMITIES: Focusing on the right hip. She is supine. Not too much pain with passive range of motion of the hip. Negative flexion, adduction, internal rotation tests. She is tender over the greater trochanter, extending back into the gluteus medius muscle. This does reproduce most of her leg pain. She is obviously tender in the low back from postsurgical. Motor strength, right lower extremity, is preserved at 4+ out of 5. Range of motion of the hip: Full extension, 100 degrees of flexion, 30 degrees of internal and external rotation, without much discomfort, 30 degrees of abduction. IMAGING: MRI is reviewed from [facility], does show some mild arthritis. There is a superior labral tear. 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 This is evident on plain x-ray as well. The gluteus medius and minimus show partial tearing with some inflammation and bursitis at the greater trochanter. ASSESSMENT: Long discussion with Pratima. We spent 15 minutes reviewing treatment options. At this point I think a lot of her symptoms may be related to that trochanteric bursa and small gluteus medius tear. I do not think she is getting much symptomatology from that torn labrum. As a first start, we will try an injection into her greater trochanter. We did check in with Dr. Newman, who is okay with this injection. So I proceeded with a steroid injection to her RT greater trochanter at the bedside I explained to her what to expect over the next several days. When she starts PT for her back we can have the therapist work on her hip as well. /[id number]/MODL MTDD
[2017-09-11] MEDS: morphINE SR 15 MG TAB PO SCH ×2 (09:16→21:33)
--- NOTE | 2017-09-11 09:37 | NEUSURGPN ---
Date of Surgery: 09/08/17 Post Op Day: 3 Assessment/Plan: 72 yr old s/p L2-3, L5-S1 TLIF with PSF L1-S1 POD#3 Plan: -Pain management, patient continues to slowly improve with current medications -Patient with same persistent right hip pain as pre op, xray right hip was negative, MRI right hip showed labrum tear. Ortho consulted and recommending a hip injection which is ok from our standpoint. -Lumbar post op xrays show stable hardware placement -PT/OT -Wear brace when out of bed, patient already has brace -H/H 24.8/7.9 will give one unit PRBC today -MANNY remains productive, will leave in for today -Rebab consult to eval for dispo options -Please call neurosurgery with any questions/concerns -Patient was seen by Dr Newman as well Subjective: Slowly improving, feels better than pre op Objective: AxO x3 PERRLA No droop 5/5 BUE, BLE Sensation intact to light touch BLE Dressing CDI MANNY productive/patent Neuro Check Frequency: per routine Urinary Catheter in Place: No Catheter Insertion Date: 09/08/17 - Physician Discussed Patient with : Trent Patient Seen by : Trent Neurosurgery Physical Exam - Vitals, I&O, Labs I and O 09/10/17 09/11/17 09/12/17 05:59 05:59 05:59 Intake Total 1719 1000 830 Output Total 3530 570 Balance -1811 430 830 Weight 90.718 kg Intake: Oral (ml) 1000 500 500 IV Intake (ml) 447 310 IV Infused (ml) 272 500 20 Vancomycin HCl/Normal 250 Saline 250 ml @ 250 mls/ hr IV ONCE@0100 ONE Rx#: [id number] 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 See Protocol 22 500 20 IV PRN PRN Rx#: [id number] Output: Urine (ml) 3250 450 Catheter 3250 Toilet 450 MANNY Drain Output (ml) 280 120 #1 Back 280 120 Other: Output Comment Toilet missed hat Number of Voids Toilet 1 Bladder Scan Volume (ml) Toilet 487 Microbiology 09/08/17 14:00 Gram Stain - Final Other - Tissue Vital Signs Temp Pulse Resp BP Pulse Ox 37.0 C 121 H 14 96/53 L 95 09/11/17 08:00 09/11/17 08:00 09/11/17 08:00 09/11/17 08:00 09/11/17 08:00 Laboratory Results 09/11/17 04:20 09/09/17 04:20 ICD10 Worksheet Patient Problems: Problems Problem Status Onset Arthrodesis status Acute Lumbago Acute Lumbar radicular pain Acute Lumbar stenosis Acute
[2017-09-11] MEDS ORDERED: BUPIVACAINE 0.5% 10 ML SDV IF ONE (09:45)
[2017-09-11] MEDS ORDERED: LIDOCAINE 1% 2 ML INJ IF ONE (10:00)
[2017-09-11] MEDS ORDERED: DEPO METHYLPREDNISOLONE 80 MG/ML SDV IU ONE (10:00)
[2017-09-11] MEDS: ONDANSETRON DISINTEGRATING 4 MG TAB PO PRN (10:34)
[2017-09-11] MEDS: FAMOTIDINE 20 MG TAB PO SCH ×3 (13:55→21:33)
[2017-09-11] MEDS: PATCH REMOVAL 1 EA PATCH TD SCH (16:56)
[2017-09-11] MEDS: SCOPOLAMINE HYDROBROMIDE 1 MG/3 DAYS PATCH TD SCH (17:33)
[2017-09-11] MEDS: ATORVASTATIN CALCIUM 40 MG TAB PO SCH (21:32)
[2017-09-12] MEDS: morphINE PCA 30 MG/30 ML PCA IV PRN (04:13)
[2017-09-12] MEDS: METHOCARBAMOL 750 MG TAB PO SCH ×4 (04:52→21:25)
[2017-09-12] MEDS: GABAPENTIN 300 MG CAP PO SCH ×3 (04:52→21:24)
[2017-09-12] MEDS: ACETAMINOPHEN 500 MG TAB PO SCH ×3 (04:52→21:25)
--- NOTE | 2017-09-12 08:30 | NEUSURGPN ---
Date of Surgery: 09/08/17 Post Op Day: 4 Assessment/Plan: 72 yr old s/p L2-3, L5-S1 TLIF with PSF L1-S1 POD#4 Plan: -Pain management- improved. 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 Ortho consulted and patient received a hip injection. Hip pain improved this morning -Lumbar post op xrays show stable hardware placement -PT/OT -Wear brace when out of bed -H/H improved today at 9.6/29.8, given one unit PRBCs on 09/11 -Remove MANNY drain today -Dispo planning- work towards rehab -Please call neurosurgery with any questions/concerns Discussed with Dr. Newman Subjective: Hip pain improved this morning. No overnight issues. Objective: Awake. Alert. PERRL. 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 See Protocol 500 20 IV PRN PRN Rx#: [id number] Whole Blood (ml) 353 Output: Urine (ml) 450 Toilet 450 MANNY Drain Output (ml) 120 60 #1 Back 120 60 Other: Intake Quantity Yes Sufficient Output Comment Toilet missed hat Number of Voids Toilet 1 1 Number of Stools Toilet 1 Bladder Scan Volume (ml) Toilet 487 Microbiology 09/08/17 14:00 Gram Stain - Final Other - Tissue Vital Signs Temp Pulse Resp BP Pulse Ox 37.2 C 83 16 116/70 95 09/12/17 08:00 09/12/17 08:00 09/12/17 08:00 09/12/17 08:00 09/12/17 08:00 Laboratory Results 09/12/17 04:47 09/09/17 04:20 ICD10 Worksheet Patient Problems: Problems Problem Status Onset Arthrodesis status Acute Lumbago Acute Lumbar radicular pain Acute Lumbar stenosis Acute
[2017-09-12] MEDS: ENOXAPARIN 40 MG/0.4 ML SYR SC SCH (08:57)
[2017-09-12] MEDS: FAMOTIDINE 20 MG TAB PO SCH ×3 (08:57→21:25)
[2017-09-12] MEDS: morphINE SR 15 MG TAB PO SCH ×2 (08:57→21:25)
[2017-09-12] MEDS: oxyCODONE IR 5 MG TAB PO PRN ×4 (09:01→21:27)
[2017-09-12] MEDS: MAGNESIUM HYDROXIDE 30 ML UDCUP PO SCH (09:14)
[2017-09-12] MEDS: SENNOSIDES/DOCUSATE SODIUM TAB PO SCH ×2 (09:14→22:24)
--- NOTE | 2017-09-12 16:43 | ASMTCMCOM ---
CM Note CM Note Notes: Spoke with patient and Bill about discharge options. They agree that patient would likely benefit from a short rehab stay. I explained how Case Management handles the discharge process and gave them a list of area SNFs. They will do some research, and we will follow up to see which facilities they'd like referrals sent to. Current CM Discharge plan: SNF, location TBD Date Signed: 09/12/2017 04:42 PM Electronically Signed By:Cindi Landry RN
[2017-09-12] MEDS: ATORVASTATIN CALCIUM 40 MG TAB PO SCH (21:25)
[2017-09-13] MEDS: GABAPENTIN 300 MG CAP PO SCH ×3 (05:43→21:21)
[2017-09-13] MEDS: ACETAMINOPHEN 500 MG TAB PO SCH ×3 (05:43→21:20)
[2017-09-13] MEDS: oxyCODONE IR 5 MG TAB PO PRN ×5 (05:43→23:27)
[2017-09-13] MEDS: METHOCARBAMOL 750 MG TAB PO SCH ×4 (05:43→21:22)
[2017-09-13] MEDS: MAGNESIUM HYDROXIDE 30 ML UDCUP PO SCH (07:20)
[2017-09-13] MEDS: SENNOSIDES/DOCUSATE SODIUM TAB PO SCH ×2 (07:20→21:21)
[2017-09-13] MEDS: FAMOTIDINE 20 MG TAB PO SCH ×2 (08:25→08:26)
[2017-09-13] MEDS: morphINE SR 15 MG TAB PO SCH ×2 (08:25→21:22)
[2017-09-13] MEDS: ENOXAPARIN 40 MG/0.4 ML SYR SC SCH (08:26)
--- NOTE | 2017-09-13 09:49 | SOAPPROG ---
SOAP Progress Note Assessment/Plan: Assessment: 72 yo F POD #5 L1- S1 fusion Plan: stable and doing well overall PO/OT scd/leonardo/lovenox for dvt prophylaxis ok to dc to rehab once placement has been confirmed post op x-rays look good please call with neuro changes discussed with DR Allen 09/13/17 09:47 Subjective: continued back pain with movement, no leg weakness, no leg pain while lying Objective: Vital Signs Temp Pulse Resp BP Pulse Ox 36.9 C 85 16 125/73 H 93 09/13/17 07:41 09/13/17 07:41 09/13/17 07:41 09/13/17 07:41 09/13/17 07:41 Microbiology 09/08/17 14:00 Gram Stain - Final Other - Tissue Laboratory Results 09/12/17 04:47 09/09/17 04:20 09/12/17 09/13/17 09/14/17 05:59 05:59 05:59 Intake Total 1791 1300 Output Total 60 540 Balance 1731 760 AAOx4, +FC PERRL, EOMI, no facial droop 5/5 + light touch C/D/I ICD10 Worksheet Patient Problems: Problems Problem Status Onset Arthrodesis status Acute Lumbago Acute Lumbar radicular pain Acute Lumbar stenosis Acute
--- NOTE | 2017-09-13 11:47 | ASMTCMCOM ---
CM Note CM Note Notes: Pt and interested in [facility] but they do not have beds. Second choice is [facility] and will tour today. faxed referral to [facility]. [facility] is also a possibility as is [facility]. CM to follow. Date Signed: 09/13/2017 11:46 AM Electronically Signed By:Violeta Isaacs LCSW
[2017-09-13] MEDS: ATORVASTATIN CALCIUM 40 MG TAB PO SCH (21:22)
[2017-09-13] MEDS ORDERED: CALCIUM CARBONATE 500 MG CHEWABLE TAB PO PRN (22:50)
[2017-09-14] MEDS: oxyCODONE IR 5 MG TAB PO PRN ×4 (03:36→21:13)
[2017-09-14] MEDS: METHOCARBAMOL 750 MG TAB PO SCH ×4 (05:32→21:13)
[2017-09-14] MEDS: ACETAMINOPHEN 500 MG TAB PO SCH ×3 (05:32→21:14)
[2017-09-14] MEDS: GABAPENTIN 300 MG CAP PO SCH ×3 (05:32→21:14)
[2017-09-14] MEDS: ENOXAPARIN 40 MG/0.4 ML SYR SC SCH (08:13)
[2017-09-14] MEDS: FAMOTIDINE 20 MG TAB PO SCH (08:14)
[2017-09-14] MEDS: SENNOSIDES/DOCUSATE SODIUM TAB PO SCH ×2 (08:14→21:14)
[2017-09-14] MEDS: morphINE SR 15 MG TAB PO SCH ×2 (08:14→21:13)
[2017-09-14] MEDS: MAGNESIUM HYDROXIDE 30 ML UDCUP PO SCH (08:16)
--- NOTE | 2017-09-14 09:30 | SOAPPROG ---
SOAP Progress Note Assessment/Plan: Assessment: 72 yo F POD #6 L1- S1 fusion Plan: stable, she was doing well until Friday and since then she has experienced a regression of progress. continued left leg pain that we will follow for now continue neurontin 900mg po tid PO/OT scd/leonardo/lovenox for dvt prophylaxis ok to dc to rehab once pain improves, likely tomorrow post op x-rays look good please call with neuro changes discussed with DR Allen 09/13/17 09:47 09/14/17 09:28 Subjective: continued back pain, left leg pain worse today with pain in left hip, anterior thigh and calf. Objective: Vital Signs Temp Pulse Resp BP Pulse Ox 37.1 C 121 H 16 100/70 94 09/14/17 07:51 09/14/17 07:51 09/14/17 07:51 09/14/17 07:51 09/14/17 07:51 Microbiology 09/08/17 14:00 Gram Stain - Final Other - Tissue Laboratory Results 09/12/17 04:47 09/09/17 04:20 09/13/17 09/14/17 09/15/17 05:59 05:59 05:59 Intake Total 1300 Output Total 540 Balance 760 AAOx4, +FC PERRL, EOMI, no facial droop 5/5 + light touch C/D/I ICD10 Worksheet Patient Problems: Problems Problem Status Onset Arthrodesis status Acute Lumbago Acute Lumbar radicular pain Acute Lumbar stenosis Acute
--- NOTE | 2017-09-14 10:27 | ASMTCMCOM ---
CM Note CM Note Notes: Pt is not ready for DC per [facility]. [facility] has accepted pt whenever she is ready. CM will conntinue to follow. Date Signed: 09/14/2017 10:26 AM Electronically Signed By:Violeta Isaacs LCSW
[2017-09-14] MEDS: DIAZEPAM 5 MG TAB PO PRN (11:01)
[2017-09-14] MEDS: SCOPOLAMINE HYDROBROMIDE 1 MG/3 DAYS PATCH TD SCH (12:10)
[2017-09-14] MEDS: PATCH REMOVAL 1 EA PATCH TD SCH (12:11)
--- NOTE | 2017-09-14 14:10 | CPEKG ---
Heart Rate: 92 RR Interval: 652 P-R Interval: 192 QRSD Interval: 70 QT Interval: 360 QTC Interval: 446 P [place]: 69 QRS [place]: 59 T Wave [place]: 63 EKG Severity - BORDERLINE ECG - EKG Impression: SINUS RHYTHM EKG Impression: BORDERLINE T ABNORMALITIES, ANT-LAT LEADS Electronically Signed By: Ward Montoya 15-Sep-2017 06:57:57
--- NOTE | 2017-09-14 14:51 | GCON ---
[f rep st] CONSULTATION REFERRING PHYSICIAN: Drew Newman MD REASON FOR CONSULTATION: Evaluation of tachycardia. HISTORY OF PRESENT ILLNESS: The patient is a 72-year-old who underwent a L3-4, L4-5 TLIF for severe back pain on August [address] Manuel Newman. Initially, she did well, but developed some radiating pain in the lateral thigh area. She had an MRI of the spine, which showed a seroma. Radiology was unable to aspirate this. There was no evidence of any infection. Her incision is clean and dry. After further evaluation MRI, they had several findings. Please see Dr. Manuel Newman's surgical note. Subsequently, she had a L1-S1 fusion. In the postop setting she has done overall well. The hospitalist team is asked to evaluate her in regard to her tachycardia. Per the patient, her heart rate usually runs in the low 100. During my evaluation, it was at 126. She was asymptomatic. She denies any chest pain. She has no shortness of breath. She has no pain with inspiration. Prior to getting her initial back surgery, she was evaluated by [facility]. She had an echo and stress test, per the patient, everything was fine. During my interview, her pain is well managed. She has no fever, no chills. PAST MEDICAL HISTORY: 1. Hyperlipidemia. 2. Polio as a child. 3. GERD. 4. Oxygen use at night due to the altitude. PAST SURGICAL HISTORY: 1. Status post L3-4, L4-5 TLIF on August 13, 2017. 2. L1-S1 fusion on 09/10/2017. 3. Lumpectomy that was benign. 4. Toe surgery. FAMILY HISTORY: Her mom had TIAs, and had a decubitus ulcer, and at age 84. Her father had lung cancer and at age 84. SOCIAL HISTORY: She has been for 50 years. She has 3 children. She is originally from the [facility]. 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 She does not smoke. She does not drink alcohol. ALLERGIES: Penicillin. She is not clear of her reaction, but was told she had this as a child. HOME MEDICATIONS: Oxy IR 10 mg q.4 hours p.r.n., Zantac 150 mg daily, Neurontin 600 mg p.o. q.i.d., vitamin D3 2000 units daily, calcium 500 mg t.i.d. , and Lipitor 40 mg p.o. q.h.s. REVIEW OF SYSTEMS: A 10-point review of system was performed and was negative other than pertinent positives in the HPI and past medical history. PHYSICAL EXAM: GENERAL: The patient is a 72-year-old female, who appears to be in overall very good health. VITAL SIGNS: Blood pressure is 124/76, heart rate of 102, respiratory rate is 17, O2 sat on room air 91%, temperature is 37 degrees Celsius. EYES: Pupils are equal and reactive. EOMs are intact. No conjunctival injection noted. ENT: Normal ears. Hearing intact. Normal lips. Airway is moist. NECK: Trachea is midline. CARDIOVASCULAR: She is tachycardic, in a regular rate and rhythm. No gallops noted. No JVP noted. CHEST: Lungs normal respiratory effort. Clear without wheezing, rales, rhonchi , rhonchi. ABDOMEN: Soft, nontender. SKIN: Her back incision is dry and intact, well approximated. No drainage, or redness, or warmth noted. MUSCULOSKELETAL: Not evaluated. PSYCHIATRIC: She is alert and oriented. Normal mood, affect. Normal judgment, insight, and normal memory. DATA: Reviewed. Hemoglobin and hematocrit on 09/12 were 9.6 and 29.8. Chemistry from 09/09: Her sodium is 143, potassium 4.2, chloride of 106, CO2 28 , anion gap of 9, BUN 8, creatinine of 0.6, glucose of 103, calcium 8.5. An ultrasound of her left lower extremity was performed for further evaluation of a DVT, this was noted to be negative. ASSESSMENT/PLAN: 1. Tachycardia. She is in a regular rate. Have asked for a 12-lead now. Will also place her on the ekg monitor tech for close monitoring. Will check a hemoglobin and hematocrit to make sure she is not trending down. CTA has been ordered. 2. Anemia. Will check a hemoglobin and hematocrit at this time. She has received a transfusion during her stay. 3. Back pain with recent back surgery. Pain is well managed. 4. Hypoxemia. Her lung sounds are clear throughout. Suspect she has a little bit of atelectasis. Will follow. 5. Hyperlipidemia. Statin resumed. 6. Deep venous thrombosis prophylaxis. She is on low molecular weight heparin. Thank you for this consultation. The hospitalist team will continue to follow the patient during her stay. /[id number]/MODL MTDD
[2017-09-14] MEDS ORDERED: IOPAMIDOL (ISOVUE 370) 100 ML BTL IV ONE (15:15)
[2017-09-14] MEDS: ATORVASTATIN CALCIUM 40 MG TAB PO SCH (21:13)
[2017-09-15] MEDS: oxyCODONE IR 5 MG TAB PO PRN ×6 (01:17→23:16)
[2017-09-15 05:00] LABS: PLATELET COUNT 330 10^3/uL (150-400)
[2017-09-15] MEDS: METHOCARBAMOL 750 MG TAB PO SCH ×4 (05:18→21:03)
[2017-09-15] MEDS: ACETAMINOPHEN 500 MG TAB PO SCH ×3 (05:18→21:03)
[2017-09-15] MEDS: GABAPENTIN 300 MG CAP PO SCH ×3 (05:18→21:03)
[2017-09-15] MEDS: DIAZEPAM 5 MG TAB PO PRN ×3 (08:53→23:16)
[2017-09-15] MEDS: ENOXAPARIN 40 MG/0.4 ML SYR SC SCH (08:53)
[2017-09-15] MEDS: FAMOTIDINE 20 MG TAB PO SCH (08:53)
[2017-09-15] MEDS: morphINE SR 15 MG TAB PO SCH ×2 (08:53→21:02)
[2017-09-15] MEDS: MAGNESIUM HYDROXIDE 30 ML UDCUP PO SCH (08:54)
[2017-09-15] MEDS: SENNOSIDES/DOCUSATE SODIUM TAB PO SCH ×2 (08:54→21:03)
--- NOTE | 2017-09-15 10:40 | ASMTCMCOM ---
CM Note CM Note Notes: Per neurosurgery patient is not ready to discharge today. Will communicate with [facility]. CM to follow. Date Signed: 09/15/2017 10:39 AM Electronically Signed By:Jaimie Willis RN
--- NOTE | 2017-09-15 11:55 | NEUSURGPN ---
Date of Surgery: 09/08/17 Post Op Day: 7 Assessment/Plan: Assessment: 72 yo F POD #7 L1- S1 fusion Plan: -Patient developed left lateral leg pain on Friday in L5 pattern, it is our hopes that this will improve with gabapentin and more time -Will continue gabapentin 900mg TID -Patient with tachycardia over the weekend, medicine consulted and ruled out causes for this including PE. Medicine will give fluid bolus today. -PT/OT -scd/leonardo/lovenox for dvt prophylaxis -Ok to dc to rehab once pain is under control -Post op xrays stable -Discussed patient with Dr Newman -Please call neurosurgery with any questions/concerns Subjective: Sitting in chair, left leg pain Objective: AxO x3 PERRL EOMI No facial droop 5/5 BUE 5/5 BLE Sensation intact to light touch BLE Incision CDI Neuro Check Frequency: per routine Urinary Catheter in Place: No Catheter Insertion Date: 09/08/17 - Physician Discussed Patient with Dr.: Newman Neurosurgery Physical Exam - Vitals, I&O, Labs I and O 09/14/17 09/15/17 09/16/17 05:59 05:59 05:59 Intake Total 700 Balance 700 Intake: Oral (ml) 700 Other: Intake Quantity Yes Yes Sufficient Number of Voids Bedside Commode 1 Number of Stools Bedside Commode 1 Microbiology 09/08/17 14:00 Gram Stain - Final Other - Tissue Vital Signs Temp Pulse Resp BP Pulse Ox 36.9 C 83 16 107/69 95 09/15/17 07:58 09/15/17 07:58 09/15/17 07:58 09/15/17 07:58 09/15/17 07:58 Laboratory Results 09/15/17 04:15 09/14/17 15:15 ICD10 Worksheet Patient Problems: Problems Problem Status Onset Arthrodesis status Acute Lumbago Acute Lumbar radicular pain Acute Lumbar stenosis Acute
[2017-09-15] MEDS ORDERED: NS 1,000 ML IV SCH (12:00)
--- NOTE | 2017-09-15 13:00 | HOSPPROG ---
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 H/H stable. CTA/left leg US negative for clot -normal nuclear stress test 08/14 with normal EF. -Afebrile, negative CXR. Denies dysuria, diarrhea or other infectious sxs -TSH pending, give gentle IVFs x 1 liter #Mild/mod MR/AI: seen on recent echo. No e/o volume overload #L5-S1 fusion: pain management per NSGY #Diet: regular #DVT ppx: Lovenox #Disp: we will follow along. Please call if questions Subjective: pain in left hip shooting down leg Objective: Vital Signs Temp Pulse Resp BP Pulse Ox 37.0 C 83 17 102/73 97 09/15/17 12:00 09/15/17 12:00 09/15/17 12:00 09/15/17 12:00 09/15/17 12:00 Microbiology 09/08/17 14:00 Gram Stain - Final Other - Tissue Laboratory Results 09/15/17 04:15 09/14/17 15:15 09/14/17 09/15/17 09/16/17 05:59 05:59 05:59 Intake Total 700 Balance 700 - Physical Exam Constitutional: uncomfortable Eyes: PERRL Ears, Nose, Mouth, Throat: moist mucous membranes Cardiovascular: regular rate and rhythym, diastolic murmur Respiratory: no respiratory distress Gastrointestinal: normoactive bowel sounds, soft, non-tender abdomen Genitourinary: no bladder fullness Skin: warm Musculoskeletal: full muscle strength Neurologic: AAOx3 Psychiatric: interacting appropriately ICD10 Worksheet Patient Problems: Problems Problem Status Onset Arthrodesis status Acute Lumbago Acute Lumbar radicular pain Acute Lumbar stenosis Acute
[2017-09-15] MEDS: ATORVASTATIN CALCIUM 40 MG TAB PO SCH (21:03)
[2017-09-16] MEDS: GABAPENTIN 300 MG CAP PO SCH ×3 (05:36→21:59)
[2017-09-16] MEDS: ACETAMINOPHEN 500 MG TAB PO SCH ×3 (05:36→21:59)
[2017-09-16] MEDS: METHOCARBAMOL 750 MG TAB PO SCH ×4 (05:36→21:58)
[2017-09-16] MEDS: oxyCODONE IR 5 MG TAB PO PRN ×4 (05:36→20:05)
--- NOTE | 2017-09-16 08:18 | NEUSURGPN ---
Date of Surgery: 09/15/17 Post Op Day: 1 Assessment/Plan: Assessment: 72 yo F POD #8 L1- S1 fusion Plan: -Patient developed left lateral leg pain on Friday in L5 pattern, it is our hopes that this will improve with gabapentin and more time -Will continue gabapentin 900mg TID, may consider switching to Lyrica if gabapentin not effective -Continued terrible left L5 leg pain, will get lumbar xray and MRI today to eval -Valium 10mg PO ordered for pre MRI -PT/OT -scd/leonardo/lovenox for dvt prophylaxis -Discussed patient with Dr Newman -Please call neurosurgery with any questions/concerns Subjective: Continued left leg pain Objective: AxO x3 PERRL EOMI No facial droop 5/5 BUE 5/5 BLE Sensation intact to light touch BLE Incision CDI Neuro Check Frequency: per routine Urinary Catheter in Place: No Catheter Insertion Date: 09/08/17 - Physician Discussed Patient with Dr.: Newman Patient Seen by : Trent Neurosurgery Physical Exam - Vitals, I&O, Labs I and O 09/15/17 09/16/17 09/17/17 05:59 05:59 05:59 Intake Total 700 1750 Output Total 100 Balance 700 1650 Intake: Oral (ml) 700 1750 Output: Urine (ml) 100 Bedside Commode 100 Other: Intake Quantity Yes Sufficient Number of Voids Bedside Commode 1 1 Toilet 1 Number of Stools Bedside Commode 1 Microbiology 09/08/17 14:00 Gram Stain - Final Other - Tissue Vital Signs Temp Pulse Resp BP Pulse Ox 37.1 C 84 16 121/70 H 95 09/16/17 04:00 09/16/17 04:00 09/16/17 04:00 09/16/17 04:00 09/16/17 04:00 Laboratory Results 09/16/17 04:53 09/14/17 15:15 ICD10 Worksheet Patient Problems: Problems Problem Status Onset Arthrodesis status Acute Lumbago Acute Lumbar radicular pain Acute Lumbar stenosis Acute
[2017-09-16] MEDS ORDERED: DIAZEPAM 5 MG TAB PO ONE (08:19)
[2017-09-16] MEDS ORDERED: morphINE SR 15 MG TAB PO SCH (08:47)
[2017-09-16] MEDS: ENOXAPARIN 40 MG/0.4 ML SYR SC SCH (09:05)
[2017-09-16] MEDS: FAMOTIDINE 20 MG TAB PO SCH (09:06)
[2017-09-16] MEDS: morphINE SR 30 MG TAB PO SCH ×2 (09:06→21:58)
[2017-09-16] MEDS: MAGNESIUM HYDROXIDE 30 ML UDCUP PO SCH (09:08)
[2017-09-16] MEDS: SENNOSIDES/DOCUSATE SODIUM TAB PO SCH ×2 (09:08→21:58)
[2017-09-16] MEDS ORDERED: GADOBUTROL 10 ML VIAL IVP ONE (10:55)
--- NOTE | 2017-09-16 14:27 | HOSPPROG ---
Hospitalist Progress Note Assessment/Plan: #Tachycardia: intermittent last night. 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 H/H stable. CTA/left leg US negative for clot -normal nuclear stress test 08/14 with normal EF. -Afebrile, negative CXR. Denies dysuria, diarrhea or other infectious sxs -TSH normal. 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 No e/o volume overload #L5-S1 fusion: pain management per NSGY #Diet: regular #DVT ppx: Lovenox #Disp: we will follow along. Please call if questions Subjective: "rough night last night due to back pain. No CP or SOB. Objective: Vital Signs Temp Pulse Resp BP Pulse Ox 37.0 C 119 H 19 101/77 94 09/16/17 12:00 09/16/17 12:00 09/16/17 12:00 09/16/17 12:00 09/16/17 12:00 Microbiology 09/08/17 14:00 Gram Stain - Final Other - Tissue Laboratory Results 09/16/17 04:53 09/14/17 15:15 09/15/17 09/16/17 09/17/17 05:59 05:59 05:59 Intake Total 700 1750 Output Total 100 Balance 700 1650 - Physical Exam Constitutional: no apparent distress Eyes: PERRL Ears, Nose, Mouth, Throat: moist mucous membranes Cardiovascular: regular rate and rhythym, diastolic murmur Respiratory: no respiratory distress Gastrointestinal: normoactive bowel sounds Genitourinary: no bladder fullness Musculoskeletal: full muscle strength Neurologic: AAOx3, CN II-XII Intact Psychiatric: interacting appropriately ICD10 Worksheet Patient Problems: Problems Problem Status Onset Arthrodesis status Acute Lumbago Acute Lumbar radicular pain Acute Lumbar stenosis Acute
[2017-09-16] MEDS ORDERED: KETOROLAC 30 MG/1 ML SDV IVP ONE (17:25)
[2017-09-16] MEDS: ATORVASTATIN CALCIUM 40 MG TAB PO SCH (21:59)
[2017-09-16] MEDS: DIAZEPAM 5 MG TAB PO PRN (23:50)
[2017-09-17] MEDS: oxyCODONE IR 5 MG TAB PO PRN ×5 (00:25→21:44)
[2017-09-17] MEDS: ACETAMINOPHEN 500 MG TAB PO SCH ×3 (06:13→21:44)
[2017-09-17] MEDS: GABAPENTIN 300 MG CAP PO SCH ×3 (06:13→21:44)
[2017-09-17] MEDS: METHOCARBAMOL 750 MG TAB PO SCH ×4 (06:13→21:43)
[2017-09-17] MEDS: FAMOTIDINE 20 MG TAB PO SCH (07:53)
[2017-09-17] MEDS: morphINE SR 30 MG TAB PO SCH ×2 (07:53→21:44)
[2017-09-17] MEDS: SENNOSIDES/DOCUSATE SODIUM TAB PO SCH ×2 (07:53→21:44)
[2017-09-17] MEDS: ENOXAPARIN 40 MG/0.4 ML SYR SC SCH (07:54)
[2017-09-17] MEDS: MAGNESIUM HYDROXIDE 30 ML UDCUP PO SCH (07:54)
--- NOTE | 2017-09-17 09:04 | NEUSURGPN ---
Date of Surgery: 09/08/17 Post Op Day: 9 Assessment/Plan: Assessment: 72 yo F POD #9 L1- S1 fusion Plan: -Patient developed left lateral leg pain on Friday in L5 pattern, it is our hopes that this will improve with gabapentin and more time -Will continue gabapentin 900mg TID -Patient received one dose Toradol last evening, improved left leg symptoms. Will continue to monitor today -Ok for patient to shower -MRI lumbar yesterday did not suggest any structural findings to correspond to left L5 radic -Lumbar xrays stable yesterday -PT/OT, please eval for dispo options. Patient is set to go to rehab when able, patients requesting home with home health. Will defer dispo to therapies recs -scd/leonardo/lovenox for dvt prophylaxis -Patient was seen and examined by Dr Newman today as well -Please call neurosurgery with any questions/concerns Subjective: Sitting in chair, left leg pain slightly improved Objective: AxO x3 PERRL EOMI No facial droop 5/5 BUE 5/5 BLE Sensation intact to light touch BLE Incision CDI Neuro Check Frequency: per routine Urinary Catheter in Place: No Catheter Insertion Date: 09/08/17 - Physician Discussed Patient with : Trent Patient Seen by : Trent Neurosurgery Physical Exam - Vitals, I&O, Labs I and O 09/16/17 09/17/17 09/18/17 05:59 05:59 05:59 Intake Total 1750 700 Output Total 100 Balance 1650 700 Intake: Oral (ml) 1750 700 Output: Urine (ml) 100 Bedside Commode 100 Other: Number of Voids Bedside Commode 1 2 Toilet 1 2 Microbiology 09/08/17 14:00 Gram Stain - Final Other - Tissue Vital Signs Temp Pulse Resp BP Pulse Ox 36.5 C 89 13 112/66 93 09/17/17 07:21 09/17/17 07:21 09/17/17 07:21 09/17/17 07:21 09/17/17 07:21 Laboratory Results 09/16/17 04:53 09/14/17 15:15 ICD10 Worksheet Patient Problems: Problems Problem Status Onset Arthrodesis status Acute Lumbago Acute Lumbar radicular pain Acute Lumbar stenosis Acute
--- NOTE | 2017-09-17 10:37 | HOSPPROG ---
Hospitalist Progress Note Assessment/Plan: Pratima is a 72 y/o female who s/o an L5-S1 fusion. #Tachycardia: -reviewed telemetry, she has been in sinus rhythm, no tachycardia noted -EKG with sinus tach. H/H stable. CTA/left leg US negative for clot -normal nuclear stress test 08/14 with normal EF. -Afebrile, negative CXR. Denies dysuria, diarrhea or other infectious sxs -TSH normal. 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 No e/o volume overload #L5-S1 fusion POD #9: pain management per NSGY -has some pain on left leg area -being addressed by neurosurgery #Diet: regular #DVT ppx: Lovenox #Plan: dc per neurosurgery/suspect she will be ready for dc in next day or so Subjective: Eboni has no complaints except pain down her left leg but feels it is manageable. Objective: Vital Signs Temp Pulse Resp BP Pulse Ox 36.5 C 89 13 112/66 93 09/17/17 07:21 09/17/17 07:21 09/17/17 07:21 09/17/17 07:21 09/17/17 07:21 Microbiology 09/08/17 14:00 Gram Stain - Final Other - Tissue Laboratory Results 09/16/17 04:53 09/14/17 15:15 09/16/17 09/17/17 09/18/17 05:59 05:59 05:59 Intake Total 1750 700 380 Output Total 100 Balance 1650 700 380 - Physical Exam Constitutional: no apparent distress, appears nourished, No not in pain Eyes: PERRL Ears, Nose, Mouth, Throat: hearing normal Cardiovascular: regular rate and rhythym, No bradycardia Respiratory: no respiratory distress Gastrointestinal: normoactive bowel sounds Skin: warm Musculoskeletal: generalized weakness Neurologic: AAOx3 Psychiatric: interacting appropriately ICD10 Worksheet Patient Problems: Problems Problem Status Onset Arthrodesis status Acute Lumbago Acute Lumbar radicular pain Acute Lumbar stenosis Acute
[2017-09-17] MEDS: SCOPOLAMINE HYDROBROMIDE 1 MG/3 DAYS PATCH TD SCH (13:34)
[2017-09-17] MEDS: PATCH REMOVAL 1 EA PATCH TD SCH (13:41)
[2017-09-17] MEDS: ONDANSETRON DISINTEGRATING 4 MG TAB PO PRN (15:44)
--- NOTE | 2017-09-17 16:38 | ASMTCMCOM ---
CM Note CM Note Notes: Updates sent to [facility] who are still able to accept pt for SNF placement. PT/OT continue to rec SNF today. Date Signed: 09/17/2017 04:38 PM Electronically Signed By:TEENA Andres
[2017-09-17] MEDS: ATORVASTATIN CALCIUM 40 MG TAB PO SCH (21:44)
[2017-09-18] MEDS: oxyCODONE IR 5 MG TAB PO PRN ×5 (02:50→15:07)
[2017-09-18] MEDS: DIAZEPAM 5 MG TAB PO PRN ×2 (02:51→13:57)
[2017-09-18] MEDS: GABAPENTIN 300 MG CAP PO SCH ×2 (05:39→13:56)
[2017-09-18] MEDS: ACETAMINOPHEN 500 MG TAB PO SCH ×2 (05:39→13:56)
[2017-09-18] MEDS: METHOCARBAMOL 750 MG TAB PO SCH ×3 (05:39→15:08)
--- NOTE | 2017-09-18 08:12 | NEUSURGPN ---
Date of Surgery: 09/08/17 Post Op Day: 10 Assessment/Plan: Assessment: 72 yo F POD #10 L1- S1 fusion Plan: -Patient developed left lateral leg pain on Friday in L5 pattern, it is our hopes that this will improve with gabapentin and more time and it has -we will check an US today to ensure no underlying clot -Will continue gabapentin 900mg TID -Patient received one dose Toradol, improved left leg symptoms. Will continue to monitor today -Ok for patient to shower -MRI lumbar did not suggest any structural findings to correspond to left L5 radic -Lumbar xrays stable -PT/OT, please eval for dispo options. Patient is set to go to rehab when able, patients requesting home with home health. Will defer dispo to therapies recs -pt had acute blood loss requiring PRBCs -scd/leonardo/lovenox for dvt prophylaxis -Patient was seen and examined by Dr Newman today as well -Please call neurosurgery with any questions/concerns Subjective: Awake and alert. NAD. Eating/drinking and voiding. No f/c/n/v/d. No chaney/neck/ chest/abd or gu complaints. Objective: AxO x3 PERRLA EOMI No facial droop 5/5 BUE 5/5 BLE Sensation intact to light touch BLE Incision CDI Neuro Check Frequency: per routine Urinary Catheter in Place: No Catheter Insertion Date: 09/08/17 - Physician Discussed Patient with : Trent Patient Seen by : Trent Neurosurgery Physical Exam - Vitals, I&O, Labs I and O 09/17/17 09/18/17 09/19/17 05:59 05:59 05:59 Intake Total 700 2080 Balance 700 2080 Intake: Oral (ml) 700 2080 Other: Intake Quantity Yes Sufficient Number of Voids Bedside Commode 2 2 Toilet 2 Microbiology 09/08/17 14:00 Gram Stain - Final Other - Tissue Vital Signs Temp Pulse Resp BP Pulse Ox 36.8 C 89 15 112/68 92 09/18/17 07:34 09/18/17 07:34 09/18/17 07:34 09/18/17 07:34 09/18/17 07:34 Laboratory Results 09/16/17 04:53 09/14/17 15:15 ICD10 Worksheet Patient Problems: Problems Problem Status Onset Arthrodesis status Acute Lumbago Acute Lumbar radicular pain Acute Lumbar stenosis Acute
[2017-09-18] MEDS: SENNOSIDES/DOCUSATE SODIUM TAB PO SCH (08:57)
[2017-09-18] MEDS: FAMOTIDINE 20 MG TAB PO SCH (08:57)
[2017-09-18] MEDS: morphINE SR 30 MG TAB PO SCH (08:57)
[2017-09-18] MEDS: ENOXAPARIN 40 MG/0.4 ML SYR SC SCH (08:59)
--- NOTE | 2017-09-18 09:08 | HOSPPROG ---
Hospitalist Progress Note Assessment/Plan: Pratima is a 72 y/o female who s/o an L5-S1 fusion. #Tachycardia: -reviewed telemetry, she has been in sinus rhythm, no tachycardia noted -EKG with sinus tach. H/H stable. CTA/left leg US negative for clot -normal nuclear stress test 08/14 with normal EF. -TSH normal. 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 No e/o volume overload #L5-S1 fusion POD #10 -has some pain on left leg area -being addressed by neurosurgery #left calf pain -getting an ultrasound this morning #Diet: regular #DVT ppx: Lovenox #Plan: dc per neurosurgery/hospitalist will s/o, if needed please let us know Subjective: Eboni is feeling fine. Objective: Vital Signs Temp Pulse Resp BP Pulse Ox 36.8 C 89 15 112/68 92 09/18/17 07:34 09/18/17 07:34 09/18/17 07:34 09/18/17 07:34 09/18/17 07:34 Microbiology 09/08/17 14:00 Gram Stain - Final Other - Tissue Laboratory Results 09/16/17 04:53 09/14/17 15:15 09/17/17 09/18/17 09/19/17 05:59 05:59 05:59 Intake Total 700 2080 Balance 700 2080 - Physical Exam Constitutional: no apparent distress, appears nourished Eyes: PERRL Ears, Nose, Mouth, Throat: hearing normal Cardiovascular: regular rate and rhythym, No tachycardia Respiratory: no respiratory distress Skin: warm Musculoskeletal: generalized weakness Neurologic: AAOx3 Psychiatric: interacting appropriately ICD10 Worksheet Patient Problems: Problems Problem Status Onset Arthrodesis status Acute Lumbago Acute Lumbar radicular pain Acute Lumbar stenosis Acute
[2017-09-18] MEDS: MAGNESIUM HYDROXIDE 30 ML UDCUP PO SCH (09:12)
[2017-09-18 12:01] VITALS: BP 115/74; PULSE 96; RESP 16; TEMP 97.6
--- NOTE | 2017-09-18 15:28 | PDIAF ---
- Diagnosis Diagnosis: s/p TLIF L spine Code Status: Full Code - Medication Management Discharge Medications: Medications to Continue on Transfer Atorvastatin Calcium [Lipitor 40 mg (*)] 40 mg PO HS 07/30/17 [Last Taken 21:00] Calcium Carbonate [Oyster Shell Calcium 500 mg (*)] 500 mg PO TID 07/30/17 [ Last Taken 09/07/17 21:00] Cholecalciferol Vit D3 [Vitamin D3 2000 units tab (OTC)] 2,000 units PO DAILY [Last Taken 09/07/17 08:00] Ranitidine HCl [Zantac] 150 mg PO DAILY 07/30/17 [Last Taken 09/08/17 08:30] Acetaminophen [Tylenol ES 500 mg (*)] 1,000 mg PO Q8HRS tab 09/18/17 [Last Taken Unknown] Calcium Carbonate [Tums 500MG (*)] 500 - 1,000 mg PO TID PRN tab.chew 09/18/17 [Last Taken Unknown] Diazepam [Valium 5 MG (*)] 5 mg PO Q6 PRN tab 09/18/17 [Last Taken Unknown] Enoxaparin [Lovenox 40 MG (*)] 40 mg SC DAILY syr 09/18/17 [Last Taken Unknown] Gabapentin [Neurontin 300 MG (*)] 900 mg PO Q8HRS cap 09/18/17 [Last Taken Unknown] Methocarbamol [Robaxin 750 mg (*)] 750 mg PO QID tab 09/18/17 [Last Taken Unknown] Patch Removal 1 ea TD Q72H patch 09/18/17 [Last Taken Unknown] Scopolamine Hydrobromide [Scopolamine Patch] 1 patch TD Q72H patch 09/18/17 [ Last Taken Unknown] Sennosides/Docusate Sodium [Senokot-S] 1 - 2 tab PO BID tab 09/18/17 [Last Taken Unknown] morphINE SR [MS Contin/Oramorph SR 30 mg (*)] 30 mg PO BID tab 09/18/17 [Last Taken Unknown] oxyCODONE IR [Oxycodone Ir (*)] 5 - 10 mg PO Q3H PRN tab 09/18/17 [Last Taken Unknown] Burr Sander Antibiotics: none Discharge Medications: Refer to the Discharge Home Medication list for PRN reason. PICC Care - Routine: N/A - Orders Services needed: Registered Nurse, Certified Grinding Machine Tender, Master Mirror Department Supervisor , Physical Therapy, Occupational Therapy Oxygen: to keep O2 sat greater than 90% Diet Recommendation: no restrictions on diet Diet Texture: Regular Texture Diet Turner Stockings Discontinue Date: to wear until walking well - Follow Up Care Current Providers and Referrals: Karina Crump MD [Primary Care Provider] - Sahil Newman MD [Medical Doctor] - (follow up in 2-3 weeks)
[2017-09-18 15:36] VITALS: O2SAT 81
--- NOTE | 2017-09-18 15:54 | ASMTCMCOM ---
CM Note CM Note Notes: Pt medically stable for d/c to [facility]. Pt wants to transport which Julee at [facility] confirms is approved. Orders sent in [employer]. Date Signed: 09/18/2017 03:54 PM Electronically Signed By:TEENA Andres
--- NOTE | 2017-09-18 16:21 | ASDISCHSUM ---
Discharge Information Plan Status:SNF Medically Cleared to Leave: Discharge Date:09/18/2017 04:06 PM D/C Disposition:[facility] Facility ADT D/C Disposition:Other Rehab, Not [place] Projected Discharge Date:09/14/2017 11:00 AM Transportation at D/C:Family Discharge Delay Reason: Follow-Up Date:09/14/2017 11:00 AM Discharge Slot: Final Diagnosis: Placement Information Referral Type:*Intermediate/SNF Referral ID:[id number] Provider Name:[facility] Address 1:[address] Address 2: City:[place] Selection Factors: State:[place] Patient Contact Information Contact Name:JEREMIAS Relationship: Address:[address] City:[place] Alternate Phone: State/Zip Code:[place] [address] Email: Financial Information Financial Class:Medicare Primary Plan Desc:MEDICARE INPATIENT Primary Plan Number:[id number] Secondary Plan Desc:[facility] Secondary Plan Number:[id number] Assessment Information [facility] CM Progress Note CM Note CM Note Notes: Pt had spinal surgery and may have hip fracture, xray pending. Therapy recs pending. CM to follow. Date Signed: 09/09/2017 02:46 PM Electronically Signed By:TEENA Andres [facility] CM Progress Note CM Note CM Note Notes: PT rec inpatient rehab, order input today by DERIC Green. OT rec pending. Spoke w pt and juliet about inpatient rehab, pt states she would be agreeable if recommended but is also hopeful she can progress to going home at d/c. CM to follow. Date Signed: 09/10/2017 01:57 PM Electronically Signed By:TEENA Andres [facility] CM Progress Note CM Note CM Note Notes: Spoke with patient and Bill about discharge options. They agree that patient would likely benefit from a short rehab stay. I explained how Case Management handles the discharge process and gave them a list of area SNFs. They will do some research, and we will follow up to see which facilities they'd like referrals sent to. Current CM Discharge plan: SNF, location TBD Date Signed: 09/12/2017 04:42 PM Electronically Signed By:Cindi Landry RN [facility] CM Progress Note CM Note CM Note Notes: Pt and interested in [facility] but they do not have beds. Second choice is [facility] and will tour today. faxed referral to [facility]. [facility] is also a possibility as is [facility]. CM to follow. Date Signed: 09/13/2017 11:46 AM Electronically Signed By:Violeta Isaacs LCSW [facility] CM Progress Note CM Note CM Note Notes: Pt is not ready for DC per [facility]. [facility] accepted pt whenever she is ready. CM will conntinue to follow. Date Signed: 09/14/2017 10:26 AM Electronically Signed By:Violeta Isaacs LCSW [facility] CM Progress Note CM Note CM Note Notes: Per neurosurgery patient is not ready to discharge today. [facility] to follow. Date Signed: 09/15/2017 10:39 AM Electronically Signed By:Jaimie Willis RN [facility] CM Progress Note CM Note CM Note Notes: Updates sent to [facility] who are still able to accept pt for SNF placement. PT/OT continue to rec SNF today. Date Signed: 09/17/2017 04:38 PM Electronically Signed By:TEENA Andres BC CM Progress Note CM Note CM Note Notes: Pt medically stable for d/c to [facility]. Pt wants to transport which Julee at [facility] confirms is approved. Orders sent in [employer]. Date Signed: 09/18/2017 03:54 PM Electronically Signed By:TEENA Andres Intervention Information Intervention Type:*Incorrect Registration Date of Service:09/09/2017 09:43 AM Patient Type:Observation Staff Member:TINA Don, Mari Hours: Discipline: Severity: Comment:
== END 2017-09-18 16:06 | DRG 454 ==
LOC: F3N 10:51 → OBSVTOIN 13:12 → F3N 22:40
PROVIDERS: ADMIT Neurological Surgery; ATTEND Neurological Surgery
PROC: 4A1004G Monitoring of Central Nervous Electrical Activity, Intraoperative, Open Approach (ICD-10-PCS; principal; 2017-09-08 12:30)
PROC: 0SB20ZZ Excision of Lumbar Vertebral Disc, Open Approach (ICD-10-PCS; principal; 2017-09-08 12:30)
PROC: 0SG00AJ Fusion of Lumbar Vertebral Joint with Interbody Fusion Device, Posterior Approach, Anterior Column, Open Approach (ICD-10-PCS; principal; 2017-09-08 12:30)
PROC: 01NB0ZZ Release Lumbar Nerve, Open Approach (ICD-10-PCS; principal; 2017-09-08 12:30)
PROC: 0SG0071 Fusion of Lumbar Vertebral Joint with Autologous Tissue Substitute, Posterior Approach, Posterior Column, Open Approach (ICD-10-PCS; principal; 2017-09-08 12:30)
PROC: 8E0WXBF Computer Assisted Procedure of Trunk Region, With Fluoroscopy (ICD-10-PCS; principal; 2017-09-08 12:30)
PROC: 0SG30AJ Fusion of Lumbosacral Joint with Interbody Fusion Device, Posterior Approach, Anterior Column, Open Approach (ICD-10-PCS; principal; 2017-09-08 12:30)
PROC: 0SP004Z Removal of Internal Fixation Device from Lumbar Vertebral Joint, Open Approach (ICD-10-PCS; principal; 2017-09-08 12:30)
PROC: 30233N1 Transfusion of Nonautologous Red Blood Cells into Peripheral Vein, Percutaneous Approach (ICD-10-PCS; 2017-09-11)
PROC: 3E0U33Z Introduction of Anti-inflammatory into Joints, Percutaneous Approach (ICD-10-PCS; 2017-09-11)
DX: M51.36 Other intervertebral disc degeneration, lumbar region (principal); M41.9 Scoliosis, unspecified; M43.16 Spondylolisthesis, lumbar region; M51.26 Other intervertebral disc displacement, lumbar region; D62 Acute posthemorrhagic anemia; M24.151 Other articular cartilage disorders, right hip; I08.0 Rheumatic disorders of both mitral and aortic valves; K21.9 Gastro-esophageal reflux disease without esophagitis; R00.0 Tachycardia, unspecified; Z98.1 Arthrodesis status
CPT/HCPCS: 97110-GP; 97116-GP; 97162-GP; 97166-GO; 97530-GP; 97535-GO; A9585; C1713; G8978-GP-CK; G8979-GP-CJ; G8987-GO-CJ; G8988-GO-CI; J0171; J1040; J1100; J1650; J1885; J2250; J2270; J2370; J2405; J2704; J2780; J3010; J3360; J3370; P9016; Q9967